=== PATIENT | male | born 1990 | race Hispanic/Latino ===

== ENCOUNTER 2019-07-23 09:19 | Emergency (ER) | payer MEDICAID ==
[2019-07-23 09:56] LABS: BASOPHILS % (AUTO) 0.2 % (0.0-5.0); EOSINOPHILS % (AUTO) 0.2 % (0.0-8.0); HEMATOCRIT 42.7 % (42-54); LYMPHOCYTES % (AUTO) 8.4 % (21.0-51.0); MEAN CORPUSCULAR HEMOGLOBIN 30.8 pg (27.0-33.0); MEAN CORPUSCULAR HGB CONC 33.7 g/dL (32.0-36.0); MEAN CORPUSCULAR VOLUME 91.4 fL (79-99); MONOCYTES % (AUTO) 4.7 % (3.0-13.0); NEUTROPHILS % (AUTO) 86.2 % (40.0-77.0); PLATELET COUNT (AUTO) 232 K/uL (130-400); RED BLOOD CELL COUNT(AUTO) 4.67 MIL/uL (4.50-6.20); RED CELL DISTRIBUTION WIDTH 13.1 % (11.0-15.5); WHITE BLOOD COUNT (AUTO) 14.8 K/uL (4.8-10.8)
[2019-07-23 10:04] LABS: CREATININE 0.8 mg/dL (0.5-1.5); POTASSIUM 3.3 mmol/L (3.5-5.1)
[2019-07-23 10:07] LABS: APPEARANCE,URINE Clear (CLEAR); BILIRUBIN,URINE Negative (NEGATIVE); COLOR,URINE Yellow (YELLOW); GLUCOSE, URINE (UA) Negative (NEGATIVE); KETONES,URINE Negative (NEGATIVE); LEUKOCYTE ESTERASE ,URINE Negative (NEGATIVE); NITRATE,URINE Negative (NEGATIVE); OCCULT BLOOD,URINE Negative (NEGATIVE); PROTEIN,URINE Negative (NEGATIVE); UROBILINOGEN,URINE 0.2 mg/dL (0.2-1.0)
[2019-07-23 10:09] LABS: BILIRUBIN,TOTAL 0.6 mg/dL (0.2-1.0); TOTAL PROTEIN, SERUM 6.9 g/dL (6.0-8.3)
[2019-07-23 10:14] LABS: AMPHET/METH SCREEN,URINE NEGATIVE (NEGATIVE); BARBITURATE SCREEN, URINE NEGATIVE (NEGATIVE); BENZODIAZEPINES SCREEN,URINE NEGATIVE (NEGATIVE); CANNABINOID SCREEN,URINE NEGATIVE (NEGATIVE); COCAINE SCREEN,URINE POSITIVE (NEGATIVE); OPIATE SCREEN,URINE NEGATIVE (NEGATIVE); PHENCYCLIDINE SCREEN,URINE NEGATIVE (NEGATIVE)
[2019-07-23] MEDS ORDERED: KETAMINE 50MG/ML SYRINGE 50 MG/ML DISP.SYRIN IV ONE (10:18)
[2019-07-23] MEDS ORDERED: SODIUM CHLORIDE 0.9% 100 ML IV ONE (10:19)
[2019-07-23] MEDS ORDERED: SODIUM CHLORIDE 0.9% 1000ML 1,000 ML IV ONE ×2 (11:47→15:16)
[2019-07-23] MEDS ORDERED: KETOROLAC TROMETHAMINE 30MG/ML ONE (11:47)
[2019-07-23] MEDS ORDERED: IOHEXOL-350 50ML VIAL IV ONE (12:37)
[2019-07-23] MEDS ORDERED: CEFTRIAXONE SODIUM 1 GM ONE (15:15)
[2019-07-23] MEDS ORDERED: AZITHROMYCIN 250 MG TABLET PO ONE (15:15)
[2019-07-23] MEDS ORDERED: SODIUM CHLORIDE 0.9% 50 ML IV ONE (15:16)
== END 2019-07-23 16:02 | disposition home or self-care (01) ==
LOC: EDH 09:19
DX: J18.9 Pneumonia, unspecified organism (principal); R51 Headache; I10 Essential (primary) hypertension; F14.90 Cocaine use, unspecified, uncomplicated; Z72.0 Tobacco use
CPT/HCPCS: 36415; 71045; 71260; 80053; 80305; 81003; 82550; 84484 ×2; 85025; 93005; 96374; 96375; 99285; G0480; J0696; J1885; J3490; J7030 ×2; Q9967

== ENCOUNTER → 2019-08-22 | Outpatient (CLI) | payer MEDICAID ==
[~2019-08-22] VITALS: Ht 167.6 cm; Wt 112.0 kg
[~2019-08-22] MED LIST: ASPI-1005 PO; CARV3.1262 PO; CLON0.5T4 PO; DOXY100T2 PO; LISI2.5T2 PO; PRED20TA3 PO; REGADENOSON 0.4 MG/5 ML PF SYG IVP SCH
== END | disposition home or self-care (01) ==
LOC: SHCH 07:34
PROVIDERS: ATTEND Internal Medicine Cardiovascular Disease
DX: I21.29 ST elevation (STEMI) myocardial infarction involving other sites (principal); I42.0 Dilated cardiomyopathy
CPT/HCPCS: 78452; 93017; 96374; A9500 ×2; J2785

== ENCOUNTER 2019-09-02 00:15 | Emergency (ER) | payer MEDICAID ==
[~2019-09-02 00:15] MED LIST changes: -REGADENOSON 0.4 MG/5 ML PF SYG IVP SCH
[2019-09-02] MEDS ORDERED: LORAZEPAM 2 MG/ML 1 ML VIAL ONE (00:37)
[2019-09-02 00:59] LABS: BASOPHILS % (AUTO) 0.2 % (0.0-5.0); EOSINOPHILS % (AUTO) 0.2 % (0.0-8.0); HEMATOCRIT 42.7 % (42-54); LYMPHOCYTES % (AUTO) 17.8 % (21.0-51.0); MEAN CORPUSCULAR HEMOGLOBIN 29.8 pg (27.0-33.0); MEAN CORPUSCULAR HGB CONC 33.7 g/dL (32.0-36.0); MEAN CORPUSCULAR VOLUME 88.4 fL (79-99); MONOCYTES % (AUTO) 12.2 % (3.0-13.0); NEUTROPHILS % (AUTO) 69.1 % (40.0-77.0); PLATELET COUNT (AUTO) 161 K/uL (130-400); RED BLOOD CELL COUNT(AUTO) 4.83 MIL/uL (4.50-6.20); RED CELL DISTRIBUTION WIDTH 13.5 % (11.0-15.5); WHITE BLOOD COUNT (AUTO) 5.7 K/uL (4.8-10.8)
[2019-09-02 01:08] LABS: CREATININE 1.4 mg/dL (0.5-1.5); POTASSIUM 3.2 mmol/L (3.5-5.1)
[2019-09-02 01:13] LABS: BILIRUBIN,TOTAL 0.5 mg/dL (0.2-1.0); TOTAL PROTEIN, SERUM 7.7 g/dL (6.0-8.3)
[2019-09-02] MEDS ORDERED: ACETAMINOPHEN EXTRA STRENGTH 500 MG TABLET ONE (02:01)
[2019-09-02] MEDS ORDERED: SODIUM CHLORIDE 0.9% 1000ML 1,000 ML IV ONE ×2 (02:04→05:38)
[2019-09-02] MEDS ORDERED: POTASSIUM CHLORIDE 20 MEQ ERTAB PO ONE (02:40)
== END 2019-09-02 06:21 | disposition home or self-care (01) ==
LOC: EDH 00:15
DX: F14.180 Cocaine abuse with cocaine-induced anxiety disorder (principal); R07.89 Other chest pain; E83.42 Hypomagnesemia; I10 Essential (primary) hypertension; Z72.0 Tobacco use
CPT/HCPCS: 36415; 71046; 80053; 82550; 83735; 83880; 84484 ×2; 85025; 87880; 93005 ×2; 96365; 96366; 96375; 99285; J2060; J7030 ×2

== ENCOUNTER 2019-09-03 17:40 | Emergency (ER) | payer MEDICAID ==
[2019-09-03] MEDS ORDERED: ACETAMINOPHEN EXTRA STRENGTH 500 MG TABLET ONE (18:05)
[2019-09-03 18:07] LABS: BASOPHILS % (AUTO) 0.3 % (0.0-5.0); HEMATOCRIT 42.6 % (42-54); LYMPHOCYTES % (AUTO) 51.1 % (21.0-51.0); MEAN CORPUSCULAR HEMOGLOBIN 29.8 pg (27.0-33.0); MEAN CORPUSCULAR HGB CONC 33.8 g/dL (32.0-36.0); MEAN CORPUSCULAR VOLUME 88.2 fL (79-99); MONOCYTES % (AUTO) 13.8 % (3.0-13.0); NEUTROPHILS % (AUTO) 34.3 % (40.0-77.0); PLATELET COUNT (AUTO) 153 K/uL (130-400); RED BLOOD CELL COUNT(AUTO) 4.83 MIL/uL (4.50-6.20); RED CELL DISTRIBUTION WIDTH 13.7 % (11.0-15.5); WHITE BLOOD COUNT (AUTO) 3.8 K/uL (4.8-10.8)
[2019-09-03] MEDS ORDERED: SODIUM CHLORIDE 0.9% 500ML 500 ML IV ONE (18:10)
[2019-09-03 18:19] LABS: INR 1.09 (0.85-1.15); PARTIAL THROMBOPLASTIN TIME 33.5 SEC (26.3-35.5); PROTHROMBIN TIME 11.4 SEC (9.6-11.6)
[2019-09-03 18:42] LABS: CARBON DIOXIDE 17 mmol/L (21-32); CHLORIDE 97 mmol/L (101-111); CREATININE 1.4 mg/dL (0.5-1.5); GLOMERULAR FILTR. RATE CALC 63 mL/min (>60); GLUCOSE,RANDOM 149 mg/dL (70-105); POTASSIUM 4.2 mmol/L (3.5-5.1); SODIUM SERUM 131 mmol/L (136-145); UREA NITROGEN, BLOOD 10 mg/dL (7-18)
[2019-09-03 18:51] LABS: APPEARANCE,URINE Clear (CLEAR); BILIRUBIN,URINE Negative (NEGATIVE); COLOR,URINE Yellow (YELLOW); GLUCOSE, URINE (UA) Negative (NEGATIVE); KETONES,URINE Negative (NEGATIVE); LEUKOCYTE ESTERASE ,URINE Negative (NEGATIVE); NITRATE,URINE Negative (NEGATIVE); OCCULT BLOOD,URINE Small (NEGATIVE); PROTEIN,URINE POS 2+ mg/dL (NEGATIVE)
[2019-09-03 18:53] LABS: ALANINE AMINOTRANSFERASE 31 U/L (12-78); ALBUMIN 3.3 g/dL (3.5-5.0); ASPARTATE AMINOTRANSFERASE 47 U/L (10-37); BILIRUBIN,TOTAL 0.4 mg/dL (0.2-1.0); CREATINE KINASE, TOTAL 213 U/L (21-232); MYOGLOBIN 51 ng/mL (10-92); TOTAL PROTEIN, SERUM 7.1 g/dL (6.0-8.3); TROPONIN I < 0.04 ng/mL (0.00-0.06)
[2019-09-03 18:58] LABS: AMPHET/METH SCREEN,URINE NEGATIVE (NEGATIVE); BARBITURATE SCREEN, URINE NEGATIVE (NEGATIVE); BENZODIAZEPINES SCREEN,URINE NEGATIVE (NEGATIVE); CANNABINOID SCREEN,URINE NEGATIVE (NEGATIVE); COCAINE SCREEN,URINE POSITIVE (NEGATIVE); OPIATE SCREEN,URINE NEGATIVE (NEGATIVE); PHENCYCLIDINE SCREEN,URINE NEGATIVE (NEGATIVE)
[2019-09-03 19:21] LABS: BACTERIA,URINE Few /HPF (None Seen); MUCUS,URINE Rare LPF (None Seen); SQUAMOUS EPITHELIAL CELL,UR Few /HPF (0-2); WBC,URINE 0-1 /HPF (0-1)
== END 2019-09-03 19:57 | disposition home or self-care (01) ==
LOC: EDH 17:40
DX: J10.1 Influenza due to other identified influenza virus with other respiratory manifestations (principal); I10 Essential (primary) hypertension; F14.10 Cocaine abuse, uncomplicated; Z72.0 Tobacco use
CPT/HCPCS: 36415; 71045; 80053; 80305; 81001; 82550; 83605; 83874; 83880; 84145; 84484; 85025; 85610; 85730; 87040 ×2; 87088; 87804 ×2; 93005; 99285; J7040

== ENCOUNTER 2019-09-04 22:47 | Emergency (ER) | payer MEDICAID ==
[2019-09-04 23:05] LABS: BASOPHILS % (AUTO) 0.2 % (0.0-5.0); EOSINOPHILS % (AUTO) 0.2 % (0.0-8.0); HEMATOCRIT 43.1 % (42-54); LYMPHOCYTES % (AUTO) 53.1 % (21.0-51.0); MEAN CORPUSCULAR HEMOGLOBIN 29.7 pg (27.0-33.0); MEAN CORPUSCULAR HGB CONC 33.9 g/dL (32.0-36.0); MEAN CORPUSCULAR VOLUME 87.8 fL (79-99); MONOCYTES % (AUTO) 8.7 % (3.0-13.0); NEUTROPHILS % (AUTO) 37.6 % (40.0-77.0); PLATELET COUNT (AUTO) 159 K/uL (130-400); RED BLOOD CELL COUNT(AUTO) 4.91 MIL/uL (4.50-6.20); RED CELL DISTRIBUTION WIDTH 13.5 % (11.0-15.5); WHITE BLOOD COUNT (AUTO) 4.5 K/uL (4.8-10.8)
[2019-09-04] MEDS ORDERED: ASPIRIN 325 MG TABLET ONE (23:07)
[2019-09-04] MEDS ORDERED: LORAZEPAM 2 MG/ML 1 ML VIAL ONE (23:07)
[2019-09-04 23:10] LABS: CREATININE 1.2 mg/dL (0.5-1.5); POTASSIUM 4.3 mmol/L (3.5-5.1)
[2019-09-04 23:12] LABS: INR 1.02 (0.85-1.15); PARTIAL THROMBOPLASTIN TIME 31.4 SEC (26.3-35.5); PROTHROMBIN TIME 10.7 SEC (9.6-11.6)
[2019-09-04 23:15] LABS: ALBUMIN 3.3 g/dL (3.5-5.0); BILIRUBIN,TOTAL 0.3 mg/dL (0.2-1.0)
[2019-09-04] MEDS ORDERED: SODIUM CHLORIDE 0.9% 250 ML IV ONE (23:51)
[2019-09-04] MEDS ORDERED: IPRATROPIUM/ALBUTEROL SULFATE 3 ML SOLUTION IH ONE (23:56)
[2019-09-05] MEDS ORDERED: ACETAMINOPHEN EXTRA STRENGTH 500 MG TABLET ONE (00:05)
== END 2019-09-05 01:50 | disposition home or self-care (01) ==
LOC: EDH 22:47
DX: J11.1 Influenza due to unidentified influenza virus with other respiratory manifestations (principal); I10 Essential (primary) hypertension; F14.10 Cocaine abuse, uncomplicated; Z72.0 Tobacco use
CPT/HCPCS: 36415; 71045; 80053; 82550; 83880; 84484; 85025; 85610; 85730; 93005; 94640; 96374; 99285; J2060; J7030

== ENCOUNTER → 2019-11-06 | Outpatient (CLI) | payer MEDICAID | END | disposition home or self-care (01) | LOC: SHCH 10:19 | PROVIDERS: ATTEND Internal Medicine Cardiovascular Disease | DX: I50.22 Chronic systolic (congestive) heart failure (principal); I07.1 Rheumatic tricuspid insufficiency | CPT/HCPCS: 93306; 93356 ==

== ENCOUNTER 2019-12-03 04:31 | Inpatient (IN) | payer MEDICAID ==
[2019-12-03] MEDS ORDERED: ALBUTEROL INHALER 90MCG/INH IH ONE (04:55)
[2019-12-03] MEDS ORDERED: ACETAMINOPHEN EXTRA STRENGTH 500 MG TABLET ONE (05:24)
[2019-12-03 05:29] LABS: BASOPHILS % (AUTO) 0.2 % (0.0-5.0); EOSINOPHILS % (AUTO) 0.3 % (0.0-8.0); HEMATOCRIT 42.8 % (42-54); LYMPHOCYTES % (AUTO) 11.2 % (21.0-51.0); MEAN CORPUSCULAR HEMOGLOBIN 30.3 pg (27.0-33.0); MEAN CORPUSCULAR HGB CONC 33.9 g/dL (32.0-36.0); MEAN CORPUSCULAR VOLUME 89.4 fL (79-99); MONOCYTES % (AUTO) 5.8 % (3.0-13.0); NEUTROPHILS % (AUTO) 82.2 % (40.0-77.0); PLATELET COUNT (AUTO) 252 K/uL (130-400); RED BLOOD CELL COUNT(AUTO) 4.79 MIL/uL (4.50-6.20); RED CELL DISTRIBUTION WIDTH 13.4 % (11.0-15.5); WHITE BLOOD COUNT (AUTO) 15.4 K/uL (4.8-10.8)
[2019-12-03 05:40] LABS: POTASSIUM 4.6 mmol/L (3.5-5.1)
[2019-12-03] MEDS ORDERED: AZITHROMYCIN 500MG+NS 250ML 250 ML IV ONE (05:54)
[2019-12-03] MEDS ORDERED: CEFTRIAXONE SODIUM 1 GM ONE (05:54)
[2019-12-03 05:55] LABS: B-TYPE NATRIURETIC PEPTIDE 303 pg/mL (0-100)
[2019-12-03] MEDS: AZITHROMYCIN 500MG+NS 250ML 250 ML IV SCH (06:45)
[2019-12-03 07:18] LABS: HEMOGLOBIN A1C 5.5 % (4.0-6.0)
[2019-12-03 07:21] LABS: PHOSPHORUS 3.2 mg/dL (2.5-4.9)
[2019-12-03] MEDS ORDERED: IOHEXOL-350 75 ML VIAL IV ONE (08:25)
[2019-12-03] MEDS: CEFTRIAXONE SODIUM 1 GM IV SCH ×2 (08:41→20:19)
[2019-12-03 09:00] VITALS: BP 102/64
--- NOTE | 2019-12-03 09:00 | NUR ---
ASSESSMENT PT IS AAOX3 DENIES CP DENIES SOB DENIES NV NO COMPLAINTS VERBALIZED AT THIS TIME. ARRIVED WITH ORDERS. ISOLATION MAINTAINED. CALL LIGHT WITHIN REACH.
[2019-12-03] MEDS: FAMOTIDINE 20MG TAB 20 MG TAB PO SCH ×2 (09:06→20:21)
[2019-12-03] MEDS: LISINOPRIL 2.5 MG TABLET PO SCH (09:06)
[2019-12-03] MEDS: CARVEDILOL 3.125 MG TABLET PO SCH ×2 (09:07→20:21)
[2019-12-03] MEDS: ENOXAPARIN SODIUM 40 MG/0.4 ML SYRINGE SQ SCH (09:07)
[2019-12-03] MEDS ORDERED: MAGNESIUM 2GM PREMIX 50ML 50 ML IV PRN (09:45)
[2019-12-03] MEDS ORDERED: LORAZEPAM 1 MG TABLET PO SCH (10:00)
[2019-12-03] MEDS ORDERED: PHARMACY COMMUNICATION MISC PRN (10:00)
[2019-12-03] MEDS ORDERED: CHLORDIAZEPOXIDE HCL 25 MG CAP PO PRN (10:00)
[2019-12-03] MEDS ORDERED: LORAZEPAM 2 MG/ML 1 ML VIAL IVP PRN (10:00)
[2019-12-03] MEDS ORDERED: MAGNESIUM OXIDE 400 MG TABLET PO SCH (10:00)
[2019-12-03 11:00] VITALS: BP 95/51
[2019-12-03] MEDS ORDERED: ALBUTEROL INHALER 90MCG/INH IH PRN (13:45)
[2019-12-03] MEDS ORDERED: LORAZEPAM 1 MG TABLET PO PRN (15:45)
[2019-12-03] MEDS: NICOTINE 21 MG/ 24 HR PATCH TD SCH (15:55)
[2019-12-03 16:00] VITALS: BP 109/59
--- NOTE | 2019-12-03 16:16 | NUR ---
DR DAIGLE ROUNDED SAW PATIENT, ORDERS RECEIVED
[2019-12-03] MEDS ORDERED: LOPERAMIDE HCL 2 MG CAP PO SCH (17:30)
[2019-12-03] MEDS ORDERED: LOPERAMIDE HCL 2 MG CAP PO PRN (17:30)
[2019-12-03] MEDS: METHYLPREDNISOLONE SOD SUCC 40MG/ML 1ML IVP SCH (20:19)
[2019-12-03 20:59] VITALS: BP 127/69
[2019-12-04 00:04] VITALS: BP 102/73
[2019-12-04 04:13] VITALS: BP 133/76
[2019-12-04 04:45] LABS: BASOPHILS % (AUTO) 0.1 % (0.0-5.0); EOSINOPHILS % (AUTO) 2.2 % (0.0-8.0); HEMATOCRIT 42.9 % (42-54); LYMPHOCYTES % (AUTO) 9.3 % (21.0-51.0); MEAN CORPUSCULAR HEMOGLOBIN 29.4 pg (27.0-33.0); MEAN CORPUSCULAR HGB CONC 32.9 g/dL (32.0-36.0); MEAN CORPUSCULAR VOLUME 89.6 fL (79-99); MONOCYTES % (AUTO) 1.6 % (3.0-13.0); NEUTROPHILS % (AUTO) 86.4 % (40.0-77.0); PLATELET COUNT (AUTO) 262 K/uL (130-400); RED BLOOD CELL COUNT(AUTO) 4.79 MIL/uL (4.50-6.20); RED CELL DISTRIBUTION WIDTH 13.6 % (11.0-15.5); WHITE BLOOD COUNT (AUTO) 7.9 K/uL (4.8-10.8)
[2019-12-04] MEDS: METHYLPREDNISOLONE SOD SUCC 40MG/ML 1ML IVP SCH (05:00)
[2019-12-04 05:06] LABS: CREATININE 0.8 mg/dL (0.5-1.5); MAGNESIUM 2.1 mg/dL (1.80-2.40); POTASSIUM 4.3 mmol/L (3.5-5.1)
[2019-12-04] MEDS: AZITHROMYCIN 500MG+NS 250ML 250 ML IV SCH (05:40)
[2019-12-04 06:56] LABS: AMPHET/METH SCREEN,URINE NEGATIVE (NEGATIVE); BARBITURATE SCREEN, URINE NEGATIVE (NEGATIVE); BENZODIAZEPINES SCREEN,URINE NEGATIVE (NEGATIVE); CANNABINOID SCREEN,URINE NEGATIVE (NEGATIVE); COCAINE SCREEN,URINE POSITIVE (NEGATIVE); OPIATE SCREEN,URINE NEGATIVE (NEGATIVE); PHENCYCLIDINE SCREEN,URINE NEGATIVE (NEGATIVE)
[2019-12-04 07:58] LABS: TROPONIN I 0.05 ng/mL (0.00-0.06)
[2019-12-04 08:59] VITALS: BP 145/78
[2019-12-04] MEDS ORDERED: CARVEDILOL 3.125 MG TABLET PO SCH (09:00)
--- NOTE | 2019-12-04 09:00 | NUR ---
Pt left AMA Pt signed AMA form and was about the risk and hazards of leaving AMA. Patient states yes i was told by Dr. Givens. But i will not stay another day because I feel better. Pt was informed the risk and hazards multiple times but refuses to stay. Pt states nothing will change by thought. Iv out intact, no bleeding. Pt wanted both small incision dressings changed prior to leaving. Dressing to mid epigastric and left hypochondriac region intact with steri strips reinforced with 4x4s and opsite. Bruising noted to left hypochondriac region no bleeding denies any tenderness. mid epigastric incision dry intact no bleeding no drainage denies any tenderness. Pt up walking no sob nor coughing noted. Patient states i am fine. Tele removed. Charge nurse Roro dickens and House claire Snow. at ER entrance. Addendum: 12/04/19 at 1135 by MEHNAZ ZULUAGA RN RN pt was informed that if at any time he feels sob breath or having chest pain to call 911 or to come to the ER. states okay sure will.
[2019-12-04] MEDS: LISINOPRIL 2.5 MG TABLET PO SCH (09:33)
[2019-12-04] MEDS: CEFTRIAXONE SODIUM 1 GM IV SCH (09:33)
[2019-12-04] MEDS: FAMOTIDINE 20MG TAB 20 MG TAB PO SCH (09:33)
[2019-12-04] MEDS: NICOTINE 21 MG/ 24 HR PATCH TD SCH (09:34)
[2019-12-04] MEDS: ENOXAPARIN SODIUM 40 MG/0.4 ML SYRINGE SQ SCH (10:08)
[2019-12-04 10:09] VITALS: BP 145/78
[2019-12-05 08:11] LABS: HEPATITIS A ANTIBODY IGM Negative (Negative); HEPATITIS B CORE IGM Negative (Negative); HEPATITIS Bs ANTIGEN SCREEN P Negative (Negative)
--- NOTE | 2019-12-09 10:15 | NUR ---
INFECTION CONTROL-CALLED PT TO INFORM HIM OF NEGATIVE RESULTS.
== END 2019-12-04 10:05 | disposition left against medical advice (07) | DRG 139 ==
LOC: EDH 04:31 → EDHIP 04:32 → 2DH 08:51
PROVIDERS: ADMIT Internal Medicine; ATTEND Internal Medicine
DX: J18.9 Pneumonia, unspecified organism (principal); J96.01 Acute respiratory failure with hypoxia; E83.42 Hypomagnesemia; F10.10 Alcohol abuse, uncomplicated; E66.9 Obesity, unspecified; F14.20 Cocaine dependence, uncomplicated; F17.200 Nicotine dependence, unspecified, uncomplicated; F41.9 Anxiety disorder, unspecified; I11.0 Hypertensive heart disease with heart failure; Z95.810 Presence of automatic (implantable) cardiac defibrillator; I50.42 Chronic combined systolic (congestive) and diastolic (congestive) heart failure; Z53.29 Procedure and treatment not carried out because of patient's decision for other reasons; Z83.3 Family history of diabetes mellitus; Z82.49 Family history of ischemic heart disease and other diseases of the circulatory system; I42.9 Cardiomyopathy, unspecified; Z91.14 Patient's other noncompliance with medication regimen; Z20.828 Contact with and (suspected) exposure to other viral communicable diseases; Y90.9 Presence of alcohol in blood, level not specified
CPT/HCPCS: 36415; 71045; 71275; 80048; 80074; 80305; 82550; 83036; 83605; 83615; 83735; 83874; 83880; 84100; 84145; 84484; 85025; 85378; 86140; 86701; 87040; 87071; 87205; 87390; 87633; 87635; 87804; 93005; 99291; G0378; J0456; J0696; J1650; J2920; Q9967

== ENCOUNTER 2019-12-12 07:49 | Inpatient (IN) | payer MEDICAID ==
[~2019-12-12 07:49] MED LIST changes: -CLON0.5T4 PO; -DOXY100T2 PO; -PRED20TA3 PO
[2019-12-12] MEDS ORDERED: MORPHINE SULFATE 4 MG/1ML SYG ONE (09:29)
[2019-12-12] MEDS ORDERED: ONDANSETRON HCL 4 MG/2 ML VIAL ONE (09:29)
[2019-12-12] MEDS ORDERED: LEVOFLOXACIN 500 MG/D5W 100 ML 100 ML ONE (09:29)
[2019-12-12 10:14] LABS: BASOPHILS % (AUTO) 0.3 % (0.0-5.0); EOSINOPHILS % (AUTO) 0.3 % (0.0-8.0); HEMATOCRIT 43.4 % (42-54); LYMPHOCYTES % (AUTO) 12.1 % (21.0-51.0); MEAN CORPUSCULAR HEMOGLOBIN 29.4 pg (27.0-33.0); MEAN CORPUSCULAR HGB CONC 33.2 g/dL (32.0-36.0); MEAN CORPUSCULAR VOLUME 88.6 fL (79-99); MONOCYTES % (AUTO) 5.3 % (3.0-13.0); NEUTROPHILS % (AUTO) 81.6 % (40.0-77.0); PLATELET COUNT (AUTO) 289 K/uL (130-400); RED CELL DISTRIBUTION WIDTH 13.8 % (11.0-15.5); WHITE BLOOD COUNT (AUTO) 14.6 K/uL (4.8-10.8)
[2019-12-12 10:26] LABS: CREATININE 1.2 mg/dL (0.5-1.5); POTASSIUM 3.8 mmol/L (3.5-5.1)
[2019-12-12 10:27] LABS: PROTHROMBIN TIME 10.8 SEC (9.6-11.6)
[2019-12-12 10:31] LABS: APPEARANCE,URINE CLEAR (CLEAR); BILIRUBIN,URINE NEGATIVE (NEGATIVE); COLOR,URINE YELLOW (YELLOW); GLUCOSE, URINE (UA) NEGATIVE (NEGATIVE); KETONES,URINE NEGATIVE (NEGATIVE); LEUKOCYTE ESTERASE ,URINE NEGATIVE (NEGATIVE); NITRATE,URINE NEGATIVE (NEGATIVE); OCCULT BLOOD,URINE NEGATIVE (NEGATIVE); PROTEIN,URINE NEGATIVE (NEGATIVE); UROBILINOGEN,URINE 0.2 mg/dL (0.2-1.0)
[2019-12-12 10:39] LABS: ALBUMIN 3.1 g/dL (3.5-5.0); BILIRUBIN,TOTAL 0.5 mg/dL (0.2-1.0); TOTAL PROTEIN, SERUM 6.6 g/dL (6.0-8.3); TROPONIN I 0.12 ng/mL (0.00-0.06)
[2019-12-12] MEDS ORDERED: SODIUM CHLORIDE 0.9% 1000ML 1,000 ML IV SCH (12:28)
[2019-12-12] MEDS ORDERED: ACETAMINOPHEN 325 MG TAB PO PRN ×2 (12:30)
[2019-12-12] MEDS ORDERED: ONDANSETRON HCL 4 MG/2 ML VIAL IV PRN (12:30)
[2019-12-12] MEDS ORDERED: METHYLPREDNISOLONE SOD SUCC 40MG/ML 1ML IVP SCH (13:00)
[2019-12-12] MEDS ORDERED: METHYLPREDNISOLONE SOD SUCC 40MG/ML 1ML ONE (14:40)
--- NOTE | 2019-12-12 15:46 | NUR ---
RECIEVED PATIENT ALERT, ORIENTED X3, IN NO OBVIOUS ACUTE DISTRESS. ASSESSED THE PATIENT, LUNG SOUNDS ARE CLEAR, DENIES SHORTNESS OF BREATH, PAIN OR ANY OTHER COMPLAINS. PATIENT VERBALIZED THAT HE IS HUNGRY AND WANTED SOME FOOD FROM THE OUTSIDE. EXPLAINED TO THE PATIENT THAT WE ARE NOT ALLOWING ANYTHING TO BE DELIVERED FROM THE OUTSIDE TO AVOID TRANSMISSION OF INFECTION FROM THE OUTSIDE TO THE EMPLOYEES AND TO OTHER PATIENT. THE PATIENT SEEM UPSET ABOUT THIS AND WAS VERBALIZING THAT HE WILL LEAVE AMA BECAUSE HE IS HUNGRY AND WAS NOT ABLE TO EAT FOR 2 DAYS. I EXPLAINED TO THE PATIENT WHAT THE DINNER WILL BE HERE BY [id number] AND TOLD HIM I CAN GET HIM SOME SNACK TO HOLD HIS HUNGER AND HE AGREED WITH THIS. I ASKED THE PATIENT IF HE WILL LEAVE AMA. HE VERBALIZED THAT HE WILL STAY.
--- NOTE | 2019-12-12 17:52 | NUR ---
THE PATIENT CALL ON THE CALL LIGHT AND VERBALIZED THAT HE WILL LEAVE BECAUSE HE DID NO LIKE THE FOOD. I EXPLAINED TO THE PATIENT THE IMPLICATIONS OF HIS DECISION TO LEAVE AMA. I TOLD HIM THAT HE HAS WORSENING PNEUMONIA AND HE IS SHORT OF BREATH AND LOW OXYGEN SATURATION THAT IT CAN BE VERY BAD FOR HIM TO LEAVE. I ALSO EXPLAINED TO HIM THAT LEAVING AMA THE HOSPITAL, DOCTORS AND NURSES WHO TOOK CARE OF HIM WILL NOT BE LIABLE IF SOMETHING MEDICALLY HAPPEN TO HIM. HE UNDERSTOOD THIS IMPLICATION AND HE SAID THAT HE STILL WANTED TO LEAVE AMA BECAUSE HE DID NOT LIKE THE FOOD. I NOTIFIED THE CHARGE NURSE, COLOR TELEVISION CONSOLE MONITOR, PAGEDontrell MARROQUIN. DC'D THE IV AND HE SIGNED THE AMA FORM.
[2019-12-12] MEDS ORDERED: IPRATROPIUM/ALBUTEROL SULFATE 3 ML SOLUTION IH SCH (18:00)
[2019-12-12] MEDS ORDERED: FAMOTIDINE/PF 20 MG/2 ML VIAL IV SCH (21:00)
[2019-12-12] MEDS ORDERED: ALBUTEROL INHALER 90MCG/INH IH SCH (22:00)
[2019-12-13] MEDS ORDERED: LEVOFLOXACIN 750 MG/D5W 150 ML 150 ML IV SCH (09:00)
== END 2019-12-12 18:15 | disposition left against medical advice (07) | DRG 139 ==
LOC: EDH 07:49 → EDHIP 07:50 → 2DH 15:28
PROVIDERS: ADMIT Internal Medicine; ATTEND Internal Medicine
DX: J18.9 Pneumonia, unspecified organism (principal); I50.40 Unspecified combined systolic (congestive) and diastolic (congestive) heart failure; F10.10 Alcohol abuse, uncomplicated; F17.200 Nicotine dependence, unspecified, uncomplicated; R09.02 Hypoxemia; F14.10 Cocaine abuse, uncomplicated; Z20.828 Contact with and (suspected) exposure to other viral communicable diseases; Z95.810 Presence of automatic (implantable) cardiac defibrillator; Z83.3 Family history of diabetes mellitus; Z82.49 Family history of ischemic heart disease and other diseases of the circulatory system
CPT/HCPCS: 36415; 71045; 80053; 81003; 82550; 83605; 83874; 83880; 84145; 84484; 85025; 85610; 85730; 87040; 87077; 87088; 87186; 87633; 87635; 87804; 93005; 99291; G0378; J1956; J2270; J2405; J2920

== ENCOUNTER 2019-12-22 02:42 | Inpatient (IN) | payer MEDICAID ==
[2019-12-22 04:22] LABS: APPEARANCE,URINE Clear (CLEAR); BILIRUBIN,URINE Negative (NEGATIVE); COLOR,URINE Yellow (YELLOW); GLUCOSE, URINE (UA) Negative (NEGATIVE); KETONES,URINE Negative (NEGATIVE); LEUKOCYTE ESTERASE ,URINE Negative (NEGATIVE); NITRATE,URINE Negative (NEGATIVE); OCCULT BLOOD,URINE Negative (NEGATIVE); PH,URINE 5.5 (5.0-8.0); PROTEIN,URINE Negative (NEGATIVE); UROBILINOGEN,URINE 0.2 mg/dL (0.2-1.0)
[2019-12-22 04:25] LABS: BASOPHILS % (AUTO) 0.3 % (0.0-5.0); EOSINOPHILS % (AUTO) 0.7 % (0.0-8.0); HEMATOCRIT 43.5 % (42-54); LYMPHOCYTES % (AUTO) 21.3 % (21.0-51.0); MEAN CORPUSCULAR HEMOGLOBIN 29.2 pg (27.0-33.0); MEAN CORPUSCULAR HGB CONC 32.6 g/dL (32.0-36.0); MEAN CORPUSCULAR VOLUME 89.3 fL (79-99); MONOCYTES % (AUTO) 5.3 % (3.0-13.0); NEUTROPHILS % (AUTO) 72.1 % (40.0-77.0); PLATELET COUNT (AUTO) 249 K/uL (130-400); RED BLOOD CELL COUNT(AUTO) 4.87 MIL/uL (4.50-6.20); RED CELL DISTRIBUTION WIDTH 13.5 % (11.0-15.5); WHITE BLOOD COUNT (AUTO) 10.6 K/uL (4.8-10.8)
[2019-12-22 04:35] LABS: INR 1.01 (0.85-1.15); PARTIAL THROMBOPLASTIN TIME 27.9 SEC (26.3-35.5); PROTHROMBIN TIME 10.9 SEC (9.6-11.6)
[2019-12-22 04:39] LABS: CREATININE 1.1 mg/dL (0.5-1.5); POTASSIUM 3.7 mmol/L (3.5-5.1)
[2019-12-22 04:40] LABS: AMPHET/METH SCREEN,URINE NEGATIVE (NEGATIVE); BARBITURATE SCREEN, URINE NEGATIVE (NEGATIVE); BENZODIAZEPINES SCREEN,URINE NEGATIVE (NEGATIVE); CANNABINOID SCREEN,URINE NEGATIVE (NEGATIVE); COCAINE SCREEN,URINE POSITIVE (NEGATIVE); OPIATE SCREEN,URINE NEGATIVE (NEGATIVE); PHENCYCLIDINE SCREEN,URINE NEGATIVE (NEGATIVE)
[2019-12-22] MEDS ORDERED: ASPIRIN 325 MG TABLET ONE (04:40)
[2019-12-22 04:42] LABS: ABG BASE EXCESS -3.4 mmol/L (-2.0-3.0); ABG HCO3 20.7 mmol/L (21.0-28.0); ABG PCO2 35 mmHg (35-48)
[2019-12-22] MEDS ORDERED: AZITHROMYCIN 500MG+NS 250ML 250 ML IV ONE (04:49)
[2019-12-22 04:53] LABS: ALBUMIN 3.4 g/dL (3.5-5.0); BILIRUBIN,TOTAL 0.3 mg/dL (0.2-1.0); TOTAL PROTEIN, SERUM 6.9 g/dL (6.0-8.3)
[2019-12-22 05:10] LABS: B-TYPE NATRIURETIC PEPTIDE 715 pg/mL (0-100)
[2019-12-22] MEDS ORDERED: MORPHINE SULFATE 2 MG/ML 1ML SYG IV PRN (08:30)
[2019-12-22] MEDS ORDERED: CEFTRIAXONE SODIUM 1 GM IV SCH (08:30)
[2019-12-22] MEDS ORDERED: AZITHROMYCIN 500MG+NS 250ML 250 ML IV SCH (08:30)
[2019-12-22] MEDS ORDERED: ONDANSETRON HCL 4 MG/2 ML VIAL IV PRN (08:30)
[2019-12-22] MEDS ORDERED: METHYLPREDNISOLONE SOD SUCC 125MG/2ML VIAL IV SCH (08:30)
[2019-12-22] MEDS ORDERED: ACETAMINOPHEN 325 MG TAB PO PRN ×2 (08:30)
[2019-12-22] MEDS ORDERED: HYDRALAZINE HCL 20 MG/ML VIAL IV PRN (08:30)
[2019-12-22] MEDS ORDERED: ENOXAPARIN SODIUM 30 MG/0.3 ML SQ SCH (09:00)
[2019-12-22] MEDS ORDERED: FAMOTIDINE/PF 20 MG/2 ML VIAL IV SCH (09:00)
[2019-12-22] MEDS ORDERED: MORPHINE SULFATE 2 MG/ML 1ML SYG ONE (09:28)
[2019-12-22] MEDS ORDERED: ENOXAPARIN SODIUM 30 MG/0.3 ML SQ ONE (09:30)
[2019-12-22] MEDS ORDERED: ONDANSETRON HCL 4 MG/2 ML VIAL ONE (09:30)
[2019-12-22] MEDS ORDERED: METHYLPREDNISOLONE SOD SUCC 40MG/ML 1ML ONE (09:30)
[2019-12-22] MEDS ORDERED: FAMOTIDINE/PF 20 MG/2 ML VIAL IV ONE (09:31)
[2019-12-22] MEDS ORDERED: FUROSEMIDE 10 MG/ML 4ML VIAL IV SCH (10:15)
[2019-12-22] MEDS ORDERED: FUROSEMIDE 10 MG/ML 4ML VIAL ONE (10:40)
== END 2019-12-22 15:50 | disposition left against medical advice (07) | DRG 194 ==
LOC: EDH 02:42 → EDHIP 02:43
PROVIDERS: ADMIT Hospitalist; ATTEND Hospitalist
DX: I11.0 Hypertensive heart disease with heart failure (principal); J96.01 Acute respiratory failure with hypoxia; I50.43 Acute on chronic combined systolic (congestive) and diastolic (congestive) heart failure; I42.8 Other cardiomyopathies; E66.9 Obesity, unspecified; E87.6 Hypokalemia; I42.0 Dilated cardiomyopathy; F10.10 Alcohol abuse, uncomplicated; F14.10 Cocaine abuse, uncomplicated; F17.200 Nicotine dependence, unspecified, uncomplicated; Z53.29 Procedure and treatment not carried out because of patient's decision for other reasons; Z91.14 Patient's other noncompliance with medication regimen; Z82.49 Family history of ischemic heart disease and other diseases of the circulatory system; Z83.3 Family history of diabetes mellitus; Z91.19 Patient's noncompliance with other medical treatment and regimen; Z95.810 Presence of automatic (implantable) cardiac defibrillator; Z20.828 Contact with and (suspected) exposure to other viral communicable diseases
CPT/HCPCS: 36415; 36600; 71045; 80053; 80305; 81003; 82550; 82803; 83605; 83690; 83880; 84145; 84484; 85025; 85378; 85610; 85730; 86140; 87040; 87077; 87186; 87486; 87581; 87633; 87798; 87804; 93005; 99291; G0378; J0456; J1650; J1940; J2405; J2920; J3490

== ENCOUNTER 2020-03-14 06:30 | Observation (INO) | payer MEDICAID, OTHER ==
[~2020-03-14] VITALS: Ht 167.6 cm; Wt 117.5 kg
[2020-03-14 08:13] LABS: BASOPHILS % (AUTO) 0.4 % (0.0-5.0); HEMATOCRIT 42.8 % (42-54); LYMPHOCYTES % (AUTO) 21.3 % (21.0-51.0); MEAN CORPUSCULAR HGB CONC 34.1 g/dL (32.0-36.0); MEAN CORPUSCULAR VOLUME 88.1 fL (79-99); MONOCYTES % (AUTO) 7.5 % (3.0-13.0); NEUTROPHILS % (AUTO) 70.6 % (40.0-77.0); PLATELET COUNT (AUTO) 184 K/uL (130-400); RED BLOOD CELL COUNT(AUTO) 4.86 MIL/uL (4.50-6.20); RED CELL DISTRIBUTION WIDTH 14.3 % (11.0-15.5); WHITE BLOOD COUNT (AUTO) 8.5 K/uL (4.8-10.8)
[2020-03-14 09:02] LABS: ALBUMIN 3.7 g/dL (3.5-5.0); BILIRUBIN,TOTAL 1.1 mg/dL (0.2-1.0); CREATININE 1.5 mg/dL (0.5-1.5); POTASSIUM 3.2 mmol/L (3.5-5.1); TOTAL PROTEIN, SERUM 7.2 g/dL (6.0-8.3)
[2020-03-14 09:14] LABS: INR 1.07 (0.85-1.15); PARTIAL THROMBOPLASTIN TIME 30.3 SEC (26.3-35.5); PROTHROMBIN TIME 11.5 SEC (9.6-11.6)
[2020-03-14 09:49] LABS: APPEARANCE,URINE Clear (CLEAR); BILIRUBIN,URINE Negative (NEGATIVE); COLOR,URINE Dark Yellow (YELLOW); GLUCOSE, URINE (UA) Negative (NEGATIVE); KETONES,URINE Trace mg/dL (NEGATIVE); LEUKOCYTE ESTERASE ,URINE Negative (NEGATIVE); NITRATE,URINE Negative (NEGATIVE); OCCULT BLOOD,URINE Small (NEGATIVE); PROTEIN,URINE POS 1+ mg/dL (NEGATIVE)
[2020-03-14 09:57] LABS: AMPHET/METH SCREEN,URINE NEGATIVE (NEGATIVE); BARBITURATE SCREEN, URINE NEGATIVE (NEGATIVE); BENZODIAZEPINES SCREEN,URINE NEGATIVE (NEGATIVE); CANNABINOID SCREEN,URINE NEGATIVE (NEGATIVE); COCAINE SCREEN,URINE POSITIVE (NEGATIVE); OPIATE SCREEN,URINE NEGATIVE (NEGATIVE); PHENCYCLIDINE SCREEN,URINE NEGATIVE (NEGATIVE)
[2020-03-14 10:08] LABS: BACTERIA,URINE Rare /HPF (None Seen); RBC,URINE 0-1 /HPF (0-1); SQUAMOUS EPITHELIAL CELL,UR Rare /HPF (0-2)
[2020-03-14] MEDS ORDERED: ASPIRIN 325 MG TABLET ONE (10:10)
[2020-03-14] MEDS ORDERED: FAMOTIDINE 20MG TAB 20 MG TAB PO SCH (11:39)
[2020-03-14] MEDS ORDERED: NITROGLYCERIN 1GM/1 INCH PACKET TD SCH (11:45)
--- NOTE | 2020-03-14 12:30 | NUR ---
PT DEMANDING TO HAVE FOOD BROUGHT UP TO HIS ROOM FROM OUTSIDE. PT UNWILLING TO WAIT FOR LUNCH TO BE DELIVERED FROM [place]. INFORMED PT THAT HOSPITAL POLICY DOES NOT ALLOW OUTSIDE FOOD OR DRINK. MR ALVAREZ BECAME IMPATIENT, DID NOT ALLOW NURSE TO SPEAK OR TO OBTAIN MD ORDERS. STATED, "JUST GET THE PAPERS READY, IM GOING TO LEAVE." AMA FORMS SIGNED. PIV REMOVED, HEMOSTASIS ACHIEVED AND DRESSED WITH STERILE 2X2 AND BAND AID. PT ESCORTED TO FRONT LOBBY, LEFT IN PRIVATE VEHICLE, IN STABLE CONDITION.
[2020-03-14 13:13] LABS: TROPONIN I 0.09 ng/mL (0.00-0.06)
--- NOTE | 2020-03-14 13:18 | NUR ---
REC'D PHONE CALL FROM LAB THAT PT'S CK WAS [phone]. PT HAS ALREADY LEFT, BUT RESULT WAS REPORTED TO DR MARTINEZ, WHO WAS ADMITTING MD.
[2020-03-14] MEDS ORDERED: METOPROLOL TARTRATE 25 MG TAB PO SCH (21:00)
[2020-03-15] MEDS ORDERED: ASPIRIN 81MG TAB.CHEW PO SCH (09:00)
[2020-03-15] MEDS ORDERED: ENOXAPARIN SODIUM 30 MG/0.3 ML SQ SCH (09:00)
== END 2020-03-14 12:30 | disposition left against medical advice (07) ==
LOC: EDH 06:30 → EDHIP 06:31 → 3BH 12:02
PROVIDERS: ADMIT Hospitalist; ATTEND Hospitalist
DX: R07.89 Other chest pain (principal); I11.0 Hypertensive heart disease with heart failure; I50.43 Acute on chronic combined systolic (congestive) and diastolic (congestive) heart failure; I42.0 Dilated cardiomyopathy; F17.200 Nicotine dependence, unspecified, uncomplicated; F10.10 Alcohol abuse, uncomplicated; E87.6 Hypokalemia; Z91.19 Patient's noncompliance with other medical treatment and regimen; Z95.810 Presence of automatic (implantable) cardiac defibrillator
CPT/HCPCS: 36415; 71046; 80053; 80305; 81001; 82550; 83874; 83880; 84484 ×2; 85025; 85378; 85610; 85730; 93005; 99285; G0378

== ENCOUNTER 2020-04-17 19:18 | Emergency (ER) | payer MEDICAID ==
[2020-04-17] MEDS ORDERED: ASPIRIN 325 MG TABLET ONE (19:53)
[2020-04-17] MEDS ORDERED: ACETAMINOPHEN EXTRA STRENGTH 500 MG TABLET ONE (19:53)
[2020-04-17 20:13] LABS: BASOPHILS % (AUTO) 0.2 % (0.0-5.0); EOSINOPHILS % (AUTO) 0.8 % (0.0-8.0); HEMATOCRIT 48.4 % (42-54); LYMPHOCYTES % (AUTO) 15.3 % (21.0-51.0); MEAN CORPUSCULAR HEMOGLOBIN 30.2 pg (27.0-33.0); MEAN CORPUSCULAR HGB CONC 34.1 g/dL (32.0-36.0); MEAN CORPUSCULAR VOLUME 88.5 fL (79-99); MONOCYTES % (AUTO) 6.5 % (3.0-13.0); PLATELET COUNT (AUTO) 181 K/uL (130-400); RED BLOOD CELL COUNT(AUTO) 5.47 MIL/uL (4.50-6.20); RED CELL DISTRIBUTION WIDTH 13.6 % (11.0-15.5); WHITE BLOOD COUNT (AUTO) 9.6 K/uL (4.8-10.8)
[2020-04-17 20:27] LABS: INR 0.99 (0.85-1.15); PARTIAL THROMBOPLASTIN TIME 27.1 SEC (26.3-35.5); PROTHROMBIN TIME 10.7 SEC (9.6-11.6)
[2020-04-17 20:33] LABS: ALBUMIN 3.7 g/dL (3.5-5.0); BILIRUBIN,TOTAL 0.7 mg/dL (0.2-1.0); CREATININE 1.1 mg/dL (0.5-1.5); TOTAL PROTEIN, SERUM 8.1 g/dL (6.0-8.3)
[2020-04-17 20:53] LABS: POTASSIUM 4.2 mmol/L (3.5-5.1)
[2020-04-17 20:57] LABS: B-TYPE NATRIURETIC PEPTIDE 112 pg/mL (0-100)
[2020-04-17 20:58] LABS: RAPID GROUP A STREP POSITIVE (NEGATIVE)
== END 2020-04-17 22:22 | disposition home or self-care (01) ==
LOC: EDH 19:18
DX: J02.0 Streptococcal pharyngitis (principal); R07.89 Other chest pain; Z20.828 Contact with and (suspected) exposure to other viral communicable diseases; I10 Essential (primary) hypertension; Z72.0 Tobacco use
CPT/HCPCS: 36415; 71045; 80053; 82550; 83880; 84484 ×2; 85025; 85610; 85730; 87426; 87804 ×2; 87880; 93005 ×2; 99285; U0003

== ENCOUNTER 2020-06-19 23:57 | Emergency (ER) | payer MEDICAID ==
[2020-06-20] MEDS ORDERED: ASPIRIN 325 MG TABLET ONE (00:07)
[2020-06-20 00:27] LABS: APPEARANCE,URINE Clear (CLEAR); BILIRUBIN,URINE Negative (NEGATIVE); COLOR,URINE Yellow (YELLOW); GLUCOSE, URINE (UA) Negative (NEGATIVE); KETONES,URINE Negative (NEGATIVE); LEUKOCYTE ESTERASE ,URINE Negative (NEGATIVE); NITRATE,URINE Negative (NEGATIVE); OCCULT BLOOD,URINE Negative (NEGATIVE); PH,URINE 5.5 (5.0-8.0); PROTEIN,URINE Negative (NEGATIVE)
[2020-06-20 00:27] LABS: INR 1.01 (0.85-1.15); PARTIAL THROMBOPLASTIN TIME 26.2 SEC (26.3-35.5); PROTHROMBIN TIME 10.9 SEC (9.6-11.6)
[2020-06-20 00:30] LABS: ALBUMIN 3.2 g/dL (3.5-5.0); BILIRUBIN,TOTAL 0.4 mg/dL (0.2-1.0); POTASSIUM 4.4 mmol/L (3.5-5.1); TOTAL PROTEIN, SERUM 6.7 g/dL (6.0-8.3)
[2020-06-20 00:40] LABS: BASOPHILS % (AUTO) 0.3 % (0.0-5.0); EOSINOPHILS % (AUTO) 2.6 % (0.0-8.0); HEMATOCRIT 45.6 % (42-54); LYMPHOCYTES % (AUTO) 31.6 % (21.0-51.0); MEAN CORPUSCULAR HEMOGLOBIN 30.5 pg (27.0-33.0); MEAN CORPUSCULAR HGB CONC 33.1 g/dL (32.0-36.0); MEAN CORPUSCULAR VOLUME 92.1 fL (79-99); MONOCYTES % (AUTO) 7.4 % (3.0-13.0); NEUTROPHILS % (AUTO) 57.9 % (40.0-77.0); PLATELET COUNT (AUTO) 255 K/uL (130-400); RED BLOOD CELL COUNT(AUTO) 4.95 MIL/uL (4.50-6.20); RED CELL DISTRIBUTION WIDTH 14.4 % (11.0-15.5); WHITE BLOOD COUNT (AUTO) 6.5 K/uL (4.8-10.8)
[2020-06-20 00:43] LABS: CREATININE 1.1 mg/dL (0.5-1.5)
[2020-06-20 00:46] LABS: AMPHET/METH SCREEN,URINE NEGATIVE (NEGATIVE); BARBITURATE SCREEN, URINE NEGATIVE (NEGATIVE); BENZODIAZEPINES SCREEN,URINE NEGATIVE (NEGATIVE); CANNABINOID SCREEN,URINE NEGATIVE (NEGATIVE); COCAINE SCREEN,URINE POSITIVE (NEGATIVE); OPIATE SCREEN,URINE NEGATIVE (NEGATIVE); PHENCYCLIDINE SCREEN,URINE NEGATIVE (NEGATIVE)
== END 2020-06-20 04:35 | disposition home or self-care (01) ==
LOC: EDH 23:57
DX: R07.89 Other chest pain (principal); M54.6 Pain in thoracic spine; F14.10 Cocaine abuse, uncomplicated; I10 Essential (primary) hypertension; Z72.0 Tobacco use
CPT/HCPCS: 36415; 71045; 80053; 80305; 81003; 82550; 83690; 84484; 85025; 85610; 85730; 93005

== ENCOUNTER 2020-06-29 23:42 | Observation (INO) | payer MEDICAID ==
[~2020-06-29] VITALS: Ht 167.6 cm; Wt 111.1 kg
[2020-06-30] MEDS ORDERED: LORAZEPAM 2 MG/ML 1 ML VIAL ONE (00:04)
[2020-06-30 00:07] LABS: APPEARANCE,URINE Clear (CLEAR); BILIRUBIN,URINE Negative (NEGATIVE); COLOR,URINE Yellow (YELLOW); GLUCOSE, URINE (UA) Negative (NEGATIVE); KETONES,URINE Negative (NEGATIVE); LEUKOCYTE ESTERASE ,URINE Negative (NEGATIVE); NITRATE,URINE Negative (NEGATIVE); OCCULT BLOOD,URINE Negative (NEGATIVE); PH,URINE 5.5 (5.0-8.0); PROTEIN,URINE Negative (NEGATIVE); UROBILINOGEN,URINE 0.2 mg/dL (0.2-1.0)
[2020-06-30 00:11] LABS: BASOPHILS % (AUTO) 0.2 % (0.0-5.0); EOSINOPHILS % (AUTO) 0.2 % (0.0-8.0); HEMATOCRIT 44.6 % (42-54); MEAN CORPUSCULAR HEMOGLOBIN 30.6 pg (27.0-33.0); MEAN CORPUSCULAR HGB CONC 34.8 g/dL (32.0-36.0); MONOCYTES % (AUTO) 5.5 % (3.0-13.0); NEUTROPHILS % (AUTO) 69.8 % (40.0-77.0); PLATELET COUNT (AUTO) 308 K/uL (130-400); RED BLOOD CELL COUNT(AUTO) 5.07 MIL/uL (4.50-6.20); RED CELL DISTRIBUTION WIDTH 13.3 % (11.0-15.5); WHITE BLOOD COUNT (AUTO) 12.2 K/uL (4.8-10.8)
[2020-06-30 00:21] LABS: CREATININE 1.1 mg/dL (0.5-1.5); POTASSIUM 4.3 mmol/L (3.5-5.1)
[2020-06-30 00:24] LABS: INR 1.05 (0.85-1.15); PARTIAL THROMBOPLASTIN TIME 25.1 SEC (26.3-35.5); PROTHROMBIN TIME 11.3 SEC (9.6-11.6)
[2020-06-30 00:25] LABS: ALBUMIN 3.3 g/dL (3.5-5.0); BILIRUBIN,TOTAL 0.6 mg/dL (0.2-1.0); TOTAL PROTEIN, SERUM 7.5 g/dL (6.0-8.3)
[2020-06-30 00:46] LABS: AMPHET/METH SCREEN,URINE NEGATIVE (NEGATIVE); BARBITURATE SCREEN, URINE NEGATIVE (NEGATIVE); BENZODIAZEPINES SCREEN,URINE NEGATIVE (NEGATIVE); CANNABINOID SCREEN,URINE NEGATIVE (NEGATIVE); COCAINE SCREEN,URINE POSITIVE (NEGATIVE); OPIATE SCREEN,URINE NEGATIVE (NEGATIVE); PHENCYCLIDINE SCREEN,URINE NEGATIVE (NEGATIVE)
[2020-06-30] MEDS ORDERED: FUROSEMIDE 10 MG/ML 4ML VIAL ONE (02:49)
[2020-06-30] MEDS ORDERED: IBUPROFEN 400 MG TABLET ONE (02:49)
[2020-06-30] MEDS ORDERED: IBUPROFEN 200 MG TAB ONE (02:49)
[2020-06-30] MEDS ORDERED: PHARMACY COMMUNICATION MISC PRN (05:00)
[2020-06-30] MEDS ORDERED: CHLORDIAZEPOXIDE HCL 25 MG CAP PO PRN (05:00)
[2020-06-30] MEDS ORDERED: LACTULOSE 20 GM/30 ML UDCUP PO PRN (05:00)
[2020-06-30] MEDS ORDERED: ACETAMINOPHEN 325 MG TAB PO PRN ×2 (05:00)
[2020-06-30] MEDS ORDERED: ONDANSETRON HCL 4 MG/2 ML VIAL IV PRN (05:00)
[2020-06-30] MEDS ORDERED: LORAZEPAM 2 MG/ML 1 ML VIAL IVP PRN (05:00)
--- NOTE | 2020-06-30 08:00 | NUR ---
ER ADMIT WITH DX CHEST PAIN AND ELEVATED CARDIAC ENZYMES. PENDING CARDIOLOGY CONSULT..FINE TREMORS NOTED TO HANDS AT THIS TIME OTHERWISE OK.ADM DATABASE STARTED.
[2020-06-30 08:20] VITALS: BP 113/83
[2020-06-30] MEDS ORDERED: FAMOTIDINE 20MG TAB 20 MG TAB PO SCH (09:00)
[2020-06-30] MEDS ORDERED: MULTIVITAMIN TABLET PO SCH (09:00)
[2020-06-30] MEDS ORDERED: ASPIRIN 325 MG TABLET PO SCH (09:00)
[2020-06-30] MEDS ORDERED: FOLIC ACID 1 MG TABLET PO SCH (09:00)
[2020-06-30] MEDS ORDERED: THIAMINE HCL 100 MG/ML 2ML VIAL IM SCH (09:00)
--- NOTE | 2020-06-30 09:30 | NUR ---
PA. WITH DR HARTLEY IN TO SEE PT.
[2020-06-30] MEDS: FUROSEMIDE 10 MG/ML 2ML VIAL IV SCH ×2 (10:42→17:43)
--- NOTE | 2020-06-30 14:30 | NUR ---
DR. HARTLEY IN TO SEE PT. NO ORDERS
--- NOTE | 2020-06-30 18:00 | NUR ---
SO FAR HAS BEEN CO OPERATIVE. HAS BEEN INST. TO CALL WHEN NEEDS TO GO TO [facility] BUT HAS BEEN GOING ON HIS OWN.ALSO STATES FEELING FINE AND THINKS HE CAN GO HOME.
[2020-06-30 18:11] VITALS: BP 109/72
--- NOTE | 2020-06-30 20:31 | NUR ---
2029: Patient called stated he wanted to go against medical advice, encouraged patient to stay. He said " I can't stand being in the hospital I miss my kids, anyways I have a doctor's appointment tomorrow". I paged Ankita REGAN via answering service. Patient signed paper for AMA, and saline lock to lt hand removed with catheter intact. 2030: Dante REGAN returned the call informed her of above, no new orders. Galen Malonelog sorting supervisor aware. 2031: Patient walked out of the room to elevated to go home, denied any discomfort.
== END 2020-06-30 20:32 | disposition left against medical advice (07) ==
LOC: EDH 23:42 → EDHIP 23:43 → 4AH 06-30 08:07
PROVIDERS: ADMIT Internal Medicine; ATTEND Internal Medicine
DX: R07.89 Other chest pain (principal); Z20.828 Contact with and (suspected) exposure to other viral communicable diseases; I11.0 Hypertensive heart disease with heart failure; I50.42 Chronic combined systolic (congestive) and diastolic (congestive) heart failure; I42.0 Dilated cardiomyopathy; F17.210 Nicotine dependence, cigarettes, uncomplicated; F14.10 Cocaine abuse, uncomplicated; F10.10 Alcohol abuse, uncomplicated; Z95.810 Presence of automatic (implantable) cardiac defibrillator; Z79.82 Long term (current) use of aspirin; Z79.899 Other long term (current) drug therapy
CPT/HCPCS: 36415; 71045; 80053; 80305; 81003; 82550; 83880; 84484 ×3; 85025; 85610; 85730; 87426; 93005 ×2; 93306; 93356; 96372; 96374; 96376; 99285; G0378 ×16; J1940 ×3; J2060; J3411; U0003

== ENCOUNTER 2020-08-02 11:46 | Emergency (ER) | payer MEDICAID ==
[2020-08-02] MEDS ORDERED: IOHEXOL 350 MG/ML 100ML INFUS..BTL IV ONE ×2 (13:06→14:30)
[2020-08-02 13:14] LABS: BASOPHILS % (AUTO) 0.1 % (0.0-5.0); EOSINOPHILS % (AUTO) 0.5 % (0.0-8.0); HEMATOCRIT 41.5 % (42-54); MEAN CORPUSCULAR HEMOGLOBIN 29.8 pg (27.0-33.0); MEAN CORPUSCULAR HGB CONC 33.5 g/dL (32.0-36.0); MEAN CORPUSCULAR VOLUME 88.9 fL (79-99); MONOCYTES % (AUTO) 4.9 % (3.0-13.0); NEUTROPHILS % (AUTO) 78.2 % (40.0-77.0); PLATELET COUNT (AUTO) 219 K/uL (130-400); RED BLOOD CELL COUNT(AUTO) 4.67 MIL/uL (4.50-6.20); RED CELL DISTRIBUTION WIDTH 13.5 % (11.0-15.5); WHITE BLOOD COUNT (AUTO) 9.2 K/uL (4.8-10.8)
[2020-08-02 13:26] LABS: INR 1.14 (0.85-1.15); PROTHROMBIN TIME 12.1 SEC (9.6-11.6)
[2020-08-02 13:27] LABS: PARTIAL THROMBOPLASTIN TIME 26.3 SEC (26.3-35.5)
[2020-08-02 13:53] LABS: ALBUMIN 2.9 g/dL (3.5-5.0); TOTAL PROTEIN, SERUM 6.9 g/dL (6.0-8.3)
[2020-08-02] MEDS ORDERED: AZITHROMYCIN 500MG+NS 250ML 250 ML IV ONE (13:53)
[2020-08-02] MEDS ORDERED: SODIUM CHLORIDE 0.9% 50 ML IV ONE (13:53)
[2020-08-02] MEDS ORDERED: CEFTRIAXONE SODIUM 1 GM ONE (13:53)
[2020-08-02 14:18] LABS: APPEARANCE,URINE Clear (CLEAR); BILIRUBIN,URINE Negative (NEGATIVE); COLOR,URINE Yellow (YELLOW); GLUCOSE, URINE (UA) Negative (NEGATIVE); KETONES,URINE Negative (NEGATIVE); LEUKOCYTE ESTERASE ,URINE Negative (NEGATIVE); NITRATE,URINE Negative (NEGATIVE); OCCULT BLOOD,URINE Negative (NEGATIVE); PH,URINE 8.5 (5.0-8.0); PROTEIN,URINE Negative (NEGATIVE); UROBILINOGEN,URINE 0.2 mg/dL (0.2-1.0)
[2020-08-02] MEDS ORDERED: ACETAMINOPHEN 325 MG TAB ONE (14:55)
== END 2020-08-02 16:56 | disposition home or self-care (01) ==
LOC: EDH 11:46
DX: J12.89 Other viral pneumonia (principal); Z20.828 Contact with and (suspected) exposure to other viral communicable diseases; I10 Essential (primary) hypertension; F41.9 Anxiety disorder, unspecified; F32.9 Major depressive disorder, single episode, unspecified; Z72.0 Tobacco use
CPT/HCPCS: 36415; 71045; 71275; 80053; 81003; 83605; 84145; 84484; 85025; 85378; 85610; 85730; 86900; 86901; 87040 ×2; 87088; 87426; 87804 ×2; 93005; 96365; 96366 ×2; 96368; 99285; J0456; J0696; Q9967 ×2; U0003

== ENCOUNTER 2020-08-21 01:11 | Inpatient (IN) | payer MEDICAID ==
[~2020-08-21 01:11] MED LIST changes: +LISI2.5T13 PO; -LISI2.5T2 PO
[2020-08-21] MEDS ORDERED: FAMOTIDINE 20MG VIAL IV ONE ×2 (01:27→07:24)
[2020-08-21 01:28] LABS: BASOPHILS % (AUTO) 0.2 % (0.0-5.0); EOSINOPHILS % (AUTO) 0.2 % (0.0-8.0); HEMATOCRIT 48.7 % (42-54); LYMPHOCYTES % (AUTO) 8.8 % (21.0-51.0); MEAN CORPUSCULAR HEMOGLOBIN 29.4 pg (27.0-33.0); MEAN CORPUSCULAR HGB CONC 33.5 g/dL (32.0-36.0); MEAN CORPUSCULAR VOLUME 87.7 fL (79-99); MONOCYTES % (AUTO) 3.2 % (3.0-13.0); NEUTROPHILS % (AUTO) 87.2 % (40.0-77.0); PLATELET COUNT (AUTO) 283 K/uL (130-400); RED BLOOD CELL COUNT(AUTO) 5.55 MIL/uL (4.50-6.20); RED CELL DISTRIBUTION WIDTH 13.7 % (11.0-15.5); WHITE BLOOD COUNT (AUTO) 16.6 K/uL (4.8-10.8)
[2020-08-21 01:37] LABS: CREATININE 1.2 mg/dL (0.5-1.5); POTASSIUM 3.5 mmol/L (3.5-5.1)
[2020-08-21 01:43] LABS: ALBUMIN 4.1 g/dL (3.5-5.0); BILIRUBIN,TOTAL 0.9 mg/dL (0.2-1.0); TOTAL PROTEIN, SERUM 8.8 g/dL (6.0-8.3)
[2020-08-21 01:47] LABS: INR 1.13 (0.85-1.15)
[2020-08-21 01:49] LABS: PARTIAL THROMBOPLASTIN TIME 27.9 SEC (26.3-35.5)
[2020-08-21 02:26] LABS: APPEARANCE,URINE Clear (CLEAR); BILIRUBIN,URINE Negative (NEGATIVE); COLOR,URINE Yellow (YELLOW); GLUCOSE, URINE (UA) Negative (NEGATIVE); KETONES,URINE 40 mg/dL (NEGATIVE); LEUKOCYTE ESTERASE ,URINE Trace (NEGATIVE); NITRATE,URINE Negative (NEGATIVE); OCCULT BLOOD,URINE Negative (NEGATIVE); PROTEIN,URINE Negative (NEGATIVE)
[2020-08-21 02:38] LABS: AMPHET/METH SCREEN,URINE NEGATIVE (NEGATIVE); BARBITURATE SCREEN, URINE NEGATIVE (NEGATIVE); BENZODIAZEPINES SCREEN,URINE NEGATIVE (NEGATIVE); CANNABINOID SCREEN,URINE NEGATIVE (NEGATIVE); COCAINE SCREEN,URINE POSITIVE (NEGATIVE); OPIATE SCREEN,URINE NEGATIVE (NEGATIVE); PHENCYCLIDINE SCREEN,URINE NEGATIVE (NEGATIVE)
[2020-08-21 02:41] LABS: BACTERIA,URINE Rare /HPF (None Seen); RBC,URINE 0-1 /HPF (0-1); WBC,URINE 0-1 /HPF (0-1)
[2020-08-21 02:42] LABS: SQUAMOUS EPITHELIAL CELL,UR 0-2 /HPF (0-2)
[2020-08-21] MEDS ORDERED: IOHEXOL 350 MG/ML 100ML INFUS..BTL IV ONE (04:03)
[2020-08-21] MEDS ORDERED: ACETAMINOPHEN 325 MG TAB ONE (05:16)
[2020-08-21] MEDS ORDERED: DEXAMETHASONE SOD PHOSPHATE 10MG/ML 1ML VIAL ONE (05:46)
[2020-08-21] MEDS ORDERED: CEFTRIAXONE 1G VIAL ONE (05:47)
[2020-08-21] MEDS ORDERED: AZITHROMYCIN 500MG+NS 250ML 250 ML IV ONE (05:47)
[2020-08-21] MEDS ORDERED: ASPIRIN 325 MG TABLET ONE (05:47)
[2020-08-21] MEDS ORDERED: ONDANSETRON 4MG INJ IV PRN (06:00)
[2020-08-21] MEDS ORDERED: DIPHENHYDRAMINE HCL 25 MG CAPSULE PO PRN (06:00)
[2020-08-21] MEDS ORDERED: NITROGLYCERIN 0.4 MG SL TAB SL PRN (06:00)
[2020-08-21] MEDS ORDERED: GUAIFENESIN-DM 200/20 MG 10 ML PO PRN (06:00)
[2020-08-21] MEDS ORDERED: CEFTRIAXONE 1G VIAL IVP SCH (06:00)
[2020-08-21] MEDS ORDERED: DOXYCYCLINE 100MG+NS 250ML IV SCH (06:00)
[2020-08-21] MEDS ORDERED: DiphenhydrAMINE HCL 50 MG/ML VIAL IV PRN (06:00)
[2020-08-21] MEDS ORDERED: ERGOCALCIFEROL (VITAMIN D2) 50,000 UNIT CAPSULE PO SCH (06:00)
[2020-08-21] MEDS ORDERED: ACETAMINOPHEN 325 MG TAB PO PRN ×2 (06:00)
[2020-08-21] MEDS ORDERED: DEXAMETHASONE SOD PHOSPHATE 4 MG/ML 1ML VIAL IVP SCH (06:00)
[2020-08-21] MEDS ORDERED: LACTULOSE 20 GM/30 ML UDCUP PO PRN (06:00)
[2020-08-21] MEDS ORDERED: MAG/ALUM/SIMETH 30 ML UDCUP PO PRN (06:00)
[2020-08-21] MEDS ORDERED: ZINC SULFATE 220 CAPSULE ONE (07:23)
[2020-08-21] MEDS ORDERED: ASCORBIC ACID 500 MG TAB ONE (07:23)
[2020-08-21] MEDS ORDERED: ERGOCALCIFEROL (VITAMIN D2) 50,000 UNIT CAPSULE ONE (07:23)
[2020-08-21] MEDS ORDERED: DOXYCYCLINE 100MG+NS 250ML 250 ML IV ONE (07:24)
[2020-08-21] MEDS ORDERED: FAMOTIDINE 20MG VIAL IV SCH (09:00)
[2020-08-21] MEDS ORDERED: ENOXAPARIN SODIUM 40 MG/0.4 ML SYRINGE SQ SCH (09:00)
[2020-08-21] MEDS ORDERED: ASCORBIC ACID 500 MG TAB PO SCH (09:00)
[2020-08-21] MEDS ORDERED: ZINC SULFATE 220 CAPSULE PO SCH (09:00)
== END 2020-08-21 07:57 | disposition left against medical advice (07) | DRG 194 ==
LOC: EDH 01:11 → EDHIP 01:12
PROVIDERS: ADMIT Family Medicine; ATTEND Family Medicine
DX: I50.43 Acute on chronic combined systolic (congestive) and diastolic (congestive) heart failure (principal); J18.9 Pneumonia, unspecified organism; F14.129 Cocaine abuse with intoxication, unspecified; E66.01 Morbid (severe) obesity due to excess calories; Z20.822 Contact with and (suspected) exposure to COVID-19; Z95.810 Presence of automatic (implantable) cardiac defibrillator; Z91.19 Patient's noncompliance with other medical treatment and regimen; Z83.3 Family history of diabetes mellitus; Z82.49 Family history of ischemic heart disease and other diseases of the circulatory system
CPT/HCPCS: 71045; 71275; 93005; G0378; J0456; J0696; J1100; J3490; Q9967

== ENCOUNTER 2020-08-29 08:54 | Inpatient (IN) | payer MEDICAID ==
[~2020-08-29] VITALS: Ht 167.6 cm; Wt 118.0 kg
[2020-08-29 09:21] LABS: BASOPHILS % (AUTO) 0.2 % (0.0-5.0); EOSINOPHILS % (AUTO) 0.1 % (0.0-8.0); HEMATOCRIT 40.2 % (42-54); LYMPHOCYTES % (AUTO) 9.5 % (21.0-51.0); MEAN CORPUSCULAR HEMOGLOBIN 29.2 pg (27.0-33.0); MEAN CORPUSCULAR HGB CONC 33.6 g/dL (32.0-36.0); MEAN CORPUSCULAR VOLUME 86.8 fL (79-99); MONOCYTES % (AUTO) 6.1 % (3.0-13.0); NEUTROPHILS % (AUTO) 83.7 % (40.0-77.0); PLATELET COUNT (AUTO) 298 K/uL (130-400); RED BLOOD CELL COUNT(AUTO) 4.63 MIL/uL (4.50-6.20); WHITE BLOOD COUNT (AUTO) 12.1 K/uL (4.8-10.8)
[2020-08-29] MEDS ORDERED: ZOSYN 3.375GM+NS 50ML 50 ML IV ONE ×2 (09:32→21:46)
[2020-08-29 09:38] LABS: CARBON DIOXIDE 18 mmol/L (21-32); CHLORIDE 100 mmol/L (101-111); CREATININE 1.4 mg/dL (0.5-1.5); GLOMERULAR FILTR. RATE CALC 62 mL/min (>60); GLUCOSE,RANDOM 125 mg/dL (70-105); POTASSIUM 4.2 mmol/L (3.5-5.1); SODIUM SERUM 132 mmol/L (136-145); UREA NITROGEN, BLOOD 10 mg/dL (7-18)
[2020-08-29 09:45] LABS: INR 1.18 (0.85-1.15); PROTHROMBIN TIME 12.7 SEC (9.6-11.6)
[2020-08-29 09:46] LABS: PARTIAL THROMBOPLASTIN TIME 26.4 SEC (26.3-35.5)
[2020-08-29 09:50] LABS: ALANINE AMINOTRANSFERASE 29 U/L (12-78); ASPARTATE AMINOTRANSFERASE 31 U/L (10-37); BILIRUBIN,TOTAL 1.2 mg/dL (0.2-1.0); CREATINE KINASE, TOTAL 219 U/L (21-232); MYOGLOBIN 67 ng/mL (10-92); TOTAL PROTEIN, SERUM 6.8 g/dL (6.0-8.3); TROPONIN I < 0.04 ng/mL (0.00-0.06)
[2020-08-29 10:02] LABS: ABG BASE EXCESS -2.2 mmol/L (-2.0-3.0); ABG HCO3 20.8 mmol/L (21.0-28.0); ABG PCO2 31 mmHg (35-48)
[2020-08-29 10:22] LABS: ERYTHROCYTE SEDIMENTATION RATE 12 MM/HR (0-15)
[2020-08-29 10:26] LABS: APPEARANCE,URINE Clear (CLEAR); BILIRUBIN,URINE Small (NEGATIVE); COLOR,URINE Dark Yellow (YELLOW); GLUCOSE, URINE (UA) Negative (NEGATIVE); KETONES,URINE Trace mg/dL (NEGATIVE); LEUKOCYTE ESTERASE ,URINE Trace (NEGATIVE); NITRATE,URINE Negative (NEGATIVE); OCCULT BLOOD,URINE Negative (NEGATIVE); PROTEIN,URINE Trace mg/dL (NEGATIVE)
[2020-08-29 10:34] LABS: AMPHET/METH SCREEN,URINE NEGATIVE (NEGATIVE); BARBITURATE SCREEN, URINE NEGATIVE (NEGATIVE); BENZODIAZEPINES SCREEN,URINE NEGATIVE (NEGATIVE); CANNABINOID SCREEN,URINE NEGATIVE (NEGATIVE); COCAINE SCREEN,URINE POSITIVE (NEGATIVE); OPIATE SCREEN,URINE NEGATIVE (NEGATIVE); PHENCYCLIDINE SCREEN,URINE NEGATIVE (NEGATIVE)
[2020-08-29 10:35] LABS: BACTERIA,URINE Moderate /HPF (None Seen); RBC,URINE None Seen /HPF (0-1); SQUAMOUS EPITHELIAL CELL,UR Few /HPF (0-2); WBC,URINE 0-1 /HPF (0-1)
[2020-08-29 10:36] LABS: HYALINE CASTS, URINE 0-1 /LPF (0-1 /LPF); MUCUS,URINE Moderate LPF (None Seen)
[2020-08-29 10:39] LABS: B-TYPE NATRIURETIC PEPTIDE 520 pg/mL (0-100)
[2020-08-29] MEDS ORDERED: ONDANSETRON 4MG INJ IV PRN (13:30)
[2020-08-29] MEDS ORDERED: FUROSEMIDE 20MG VIAL IV SCH (13:30)
[2020-08-29] MEDS ORDERED: ACETAMINOPHEN 325 MG TAB PO PRN ×2 (13:30)
[2020-08-29] MEDS ORDERED: FUROSEMIDE 20MG VIAL ONE (13:38)
[2020-08-29] MEDS ORDERED: CEFTRIAXONE 1G VIAL ONE (15:50)
[2020-08-29] MEDS ORDERED: ACETAMINOPHEN 325 MG TAB ONE (15:50)
[2020-08-29] MEDS ORDERED: ZOSYN 3.375GM+NS 50ML 50 ML IV SCH (17:00)
[2020-08-29] MEDS ORDERED: SOLU-MEDROL 40MG VIAL IVP SCH (17:00)
[2020-08-29] MEDS ORDERED: DOXYCYCLINE 100MG+NS 250ML 250 ML IV ONE (17:48)
[2020-08-29] MEDS ORDERED: CARV6.2579 PO (20:54)
[2020-08-29] MEDS ORDERED: lorazepam (20:56)
[2020-08-29] MEDS ORDERED: remeron (20:57)
[2020-08-29] MEDS ORDERED: LINEZOLID 600 MG/ISO-OSM 300 ML IV SCH (21:00)
[2020-08-29] MEDS ORDERED: FAMOTIDINE 20MG VIAL IV SCH (21:00)
[2020-08-29] MEDS ORDERED: FAMOTIDINE 20MG VIAL IV ONE (21:47)
[2020-08-30] MEDS ORDERED: ENOXAPARIN SODIUM 40 MG/0.4 ML SYRINGE SQ SCH (09:00)
== END 2020-08-30 00:48 | disposition left against medical advice (07) | DRG 720 ==
LOC: EDH 08:54 → EDHIP 08:55
PROVIDERS: ADMIT Internal Medicine; ATTEND Internal Medicine
DX: A41.9 Sepsis, unspecified organism (principal); J96.01 Acute respiratory failure with hypoxia; I50.43 Acute on chronic combined systolic (congestive) and diastolic (congestive) heart failure; Z20.822 Contact with and (suspected) exposure to COVID-19; R65.21 Severe sepsis with septic shock; J18.8 Other pneumonia, unspecified organism; F14.10 Cocaine abuse, uncomplicated; Z95.810 Presence of automatic (implantable) cardiac defibrillator; Z83.3 Family history of diabetes mellitus; Z82.49 Family history of ischemic heart disease and other diseases of the circulatory system; Z91.14 Patient's other noncompliance with medication regimen
CPT/HCPCS: 36415; 36600; 71045; 80053; 80305; 81001; 82550; 82803; 83605; 83874; 83880; 84145; 84484; 85025; 85378; 85610; 85651; 85730; 86140; 86900; 86901; 87040; 87088; 87426; 87804; 93005; 99291; G0378; J0696; J1940; J2020; J2543; J3490; U0003

== ENCOUNTER 2020-09-13 06:31 | Inpatient (IN) | payer MEDICAID ==
[~2020-09-13] VITALS: Ht 167.6 cm; Wt 113.0 kg
[~2020-09-13 06:31] MED LIST changes: -CARV3.1262 PO; +CARV6.2579 PO; +lorazepam; +remeron
[2020-09-13 08:09] LABS: BASOPHILS % (AUTO) 0.2 % (0.0-5.0); EOSINOPHILS % (AUTO) 0.2 % (0.0-8.0); LYMPHOCYTES % (AUTO) 6.8 % (21.0-51.0); MEAN CORPUSCULAR HEMOGLOBIN 28.4 pg (27.0-33.0); MEAN CORPUSCULAR HGB CONC 32.8 g/dL (32.0-36.0); MEAN CORPUSCULAR VOLUME 86.5 fL (79-99); MONOCYTES % (AUTO) 4.8 % (3.0-13.0); NEUTROPHILS % (AUTO) 87.6 % (40.0-77.0); PLATELET COUNT (AUTO) 235 K/uL (130-400); RED BLOOD CELL COUNT(AUTO) 4.51 MIL/uL (4.50-6.20); RED CELL DISTRIBUTION WIDTH 14.1 % (11.0-15.5); WHITE BLOOD COUNT (AUTO) 11.5 K/uL (4.8-10.8)
[2020-09-13 08:23] LABS: INR 1.16 (0.85-1.15); PROTHROMBIN TIME 12.5 SEC (9.6-11.6)
[2020-09-13 08:24] LABS: ALANINE AMINOTRANSFERASE 17 U/L (12-78); ALBUMIN 3.1 g/dL (3.5-5.0); APPEARANCE,URINE CLEAR (CLEAR); ASPARTATE AMINOTRANSFERASE 29 U/L (10-37); BILIRUBIN,TOTAL 1.1 mg/dL (0.2-1.0); BILIRUBIN,URINE NEGATIVE (NEGATIVE); CARBON DIOXIDE 21 mmol/L (21-32); CHLORIDE 101 mmol/L (101-111); COLOR,URINE YELLOW (YELLOW); CREATINE KINASE, TOTAL 156 U/L (21-232); CREATININE 0.9 mg/dL (0.5-1.5); GLOMERULAR FILTR. RATE CALC 104 mL/min (>60); GLUCOSE, URINE (UA) NEGATIVE (NEGATIVE); GLUCOSE,RANDOM 89 mg/dL (70-105); KETONES,URINE 15 mg/dL (NEGATIVE); LEUKOCYTE ESTERASE ,URINE NEGATIVE (NEGATIVE); MYOGLOBIN 58 ng/mL (10-92); NITRATE,URINE NEGATIVE (NEGATIVE); OCCULT BLOOD,URINE NEGATIVE (NEGATIVE); PH,URINE 5.5 (5.0-8.0); POTASSIUM 4.3 mmol/L (3.5-5.1); PROTEIN,URINE NEGATIVE (NEGATIVE); SODIUM SERUM 136 mmol/L (136-145); TOTAL PROTEIN, SERUM 6.6 g/dL (6.0-8.3); TROPONIN I < 0.04 ng/mL (0.00-0.06); UREA NITROGEN, BLOOD 9 mg/dL (7-18); UROBILINOGEN,URINE 0.2 mg/dL (0.2-1.0)
[2020-09-13 08:25] LABS: PARTIAL THROMBOPLASTIN TIME 24.6 SEC (26.3-35.5)
[2020-09-13 08:28] LABS: B-TYPE NATRIURETIC PEPTIDE 727 pg/mL (0-100)
[2020-09-13] MEDS ORDERED: ACETAMINOPHEN 500 MG TABLET ONE (08:30)
[2020-09-13 08:38] LABS: BACTERIA,URINE Rare /HPF (None Seen); RBC,URINE None Seen /HPF (0-1); SQUAMOUS EPITHELIAL CELL,UR Rare /HPF (0-2); WBC,URINE 0-1 /HPF (0-1)
[2020-09-13] MEDS ORDERED: KETOROLAC 30MG VIAL (30MG/ML) ONE (10:11)
[2020-09-13] MEDS ORDERED: KETOROLAC 30MG VIAL (30MG/ML) IV PRN (10:15)
[2020-09-13] MEDS ORDERED: AZITHROMYCIN 500MG+NS 250ML 250 ML IV SCH (10:15)
[2020-09-13] MEDS ORDERED: ERGOCALCIFEROL (VITAMIN D2) 50,000 UNIT CAPSULE PO SCH (10:15)
[2020-09-13] MEDS ORDERED: ONDANSETRON 4MG INJ IV PRN (10:15)
[2020-09-13] MEDS ORDERED: ACETAMINOPHEN 325 MG TAB PO PRN ×2 (10:15)
[2020-09-13] MEDS ORDERED: MORPHINE 2 MG SYG IV PRN (10:15)
[2020-09-13] MEDS ORDERED: CEFTRIAXONE 1G VIAL IV SCH (10:15)
[2020-09-13] MEDS: DOXYCYCLINE 100MG+NS 250ML 250 ML IV SCH ×2 (10:15→20:18)
[2020-09-13] MEDS ORDERED: DOXYCYCLINE 100MG+NS 250ML 250 ML IV ONE (10:59)
[2020-09-13] MEDS ORDERED: AZITHROMYCIN 500MG+NS 250ML 250 ML IV ONE (10:59)
[2020-09-13] MEDS ORDERED: CEFTRIAXONE 1G VIAL ONE (11:00)
[2020-09-13] MEDS ORDERED: ERGOCALCIFEROL (VITAMIN D2) 50,000 UNIT CAPSULE ONE (11:00)
[2020-09-13 12:39] VITALS: BP 106/60
[2020-09-13 16:51] VITALS: BP 106/63
[2020-09-13 20:21] VITALS: BP 106/68
[2020-09-13] MEDS ORDERED: FAMOTIDINE 20MG VIAL IV SCH (21:00)
[2020-09-13] MEDS ORDERED: FUROSEMIDE 40MG VIAL IVP SCH (21:00)
[2020-09-13 23:35] VITALS: BP 114/66
[2020-09-13 23:49] LABS: AMPHET/METH SCREEN,URINE NEGATIVE (NEGATIVE); BARBITURATE SCREEN, URINE NEGATIVE (NEGATIVE); BENZODIAZEPINES SCREEN,URINE NEGATIVE (NEGATIVE); CANNABINOID SCREEN,URINE NEGATIVE (NEGATIVE); COCAINE SCREEN,URINE POSITIVE (NEGATIVE); OPIATE SCREEN,URINE NEGATIVE (NEGATIVE); PHENCYCLIDINE SCREEN,URINE NEGATIVE (NEGATIVE)
[2020-09-14] MEDS ORDERED: ZINC SULFATE 220 CAPSULE PO SCH (09:00)
[2020-09-14] MEDS ORDERED: CARVEDILOL 3.125 MG TABLET PO SCH (09:00)
[2020-09-14] MEDS ORDERED: LISINOPRIL 5 MG TABLET PO SCH (09:00)
[2020-09-14] MEDS ORDERED: ASCORBIC ACID 500 MG TAB PO SCH (09:00)
[2020-09-14] MEDS ORDERED: ENOXAPARIN SODIUM 40 MG/0.4 ML SYRINGE SQ SCH (09:00)
== END 2020-09-14 | disposition left against medical advice (07) | DRG 194 ==
LOC: EDH 06:31 → EDHIP 06:32 → 2DH 12:18
PROVIDERS: ADMIT Internal Medicine; ATTEND Internal Medicine
DX: I50.43 Acute on chronic combined systolic (congestive) and diastolic (congestive) heart failure (principal); F14.10 Cocaine abuse, uncomplicated; I42.9 Cardiomyopathy, unspecified; J18.9 Pneumonia, unspecified organism; J96.01 Acute respiratory failure with hypoxia; Z86.16 Personal history of COVID-19; Z53.29 Procedure and treatment not carried out because of patient's decision for other reasons; Z91.19 Patient's noncompliance with other medical treatment and regimen; Z95.810 Presence of automatic (implantable) cardiac defibrillator; Z82.49 Family history of ischemic heart disease and other diseases of the circulatory system; Z20.822 Contact with and (suspected) exposure to COVID-19
CPT/HCPCS: 36415; 70486; 71045; 80053; 80305; 81001; 82550; 82948; 83605; 83874; 83880; 84145; 84484; 85025; 85378; 85610; 85730; 86140; 86900; 86901; 87040; 87088; 87426; 87449; 87804; 93005; G0378; J0456; J0696; J1885; J1940; J3490

== ENCOUNTER 2020-10-11 02:29 | Observation (INO) | payer MEDICAID ==
[~2020-10-11] VITALS: Ht 167.6 cm; Wt 113.4 kg
[~2020-10-11 02:29] MED LIST changes: -LISI2.5T13 PO; +LISI2.5T2 PO
[2020-10-11 03:22] LABS: BASOPHILS % (AUTO) 0.3 % (0.0-5.0); EOSINOPHILS % (AUTO) 0.2 % (0.0-8.0); LYMPHOCYTES % (AUTO) 21.5 % (21.0-51.0); MEAN CORPUSCULAR HEMOGLOBIN 27.6 pg (27.0-33.0); MEAN CORPUSCULAR HGB CONC 32.7 g/dL (32.0-36.0); MEAN CORPUSCULAR VOLUME 84.5 fL (79-99); MONOCYTES % (AUTO) 5.1 % (3.0-13.0); NEUTROPHILS % (AUTO) 72.6 % (40.0-77.0); PLATELET COUNT (AUTO) 247 K/uL (130-400); RED BLOOD CELL COUNT(AUTO) 4.38 MIL/uL (4.50-6.20); RED CELL DISTRIBUTION WIDTH 14.7 % (11.0-15.5); WHITE BLOOD COUNT (AUTO) 9.3 K/uL (4.8-10.8)
[2020-10-11 03:31] LABS: APPEARANCE,URINE Clear (CLEAR); BILIRUBIN,URINE Negative (NEGATIVE); COLOR,URINE Dark Yellow (YELLOW); GLUCOSE, URINE (UA) Negative (NEGATIVE); KETONES,URINE Negative (NEGATIVE); LEUKOCYTE ESTERASE ,URINE Negative (NEGATIVE); NITRATE,URINE Negative (NEGATIVE); OCCULT BLOOD,URINE Negative (NEGATIVE); PH,URINE 5.5 (5.0-8.0); PROTEIN,URINE POS 2+ mg/dL (NEGATIVE)
[2020-10-11 03:37] LABS: INR 1.33 (0.85-1.15); PROTHROMBIN TIME 14.1 SEC (9.6-11.6)
[2020-10-11 03:38] LABS: AMPHET/METH SCREEN,URINE NEGATIVE (NEGATIVE); BARBITURATE SCREEN, URINE NEGATIVE (NEGATIVE); BENZODIAZEPINES SCREEN,URINE NEGATIVE (NEGATIVE); CANNABINOID SCREEN,URINE NEGATIVE (NEGATIVE); COCAINE SCREEN,URINE POSITIVE (NEGATIVE); OPIATE SCREEN,URINE NEGATIVE (NEGATIVE); PARTIAL THROMBOPLASTIN TIME 23.6 SEC (26.3-35.5); PHENCYCLIDINE SCREEN,URINE NEGATIVE (NEGATIVE)
[2020-10-11 03:40] LABS: BACTERIA,URINE Rare /HPF (None Seen); RBC,URINE 0-1 /HPF (0-1); WBC,URINE 0-1 /HPF (0-1)
[2020-10-11 03:43] LABS: CREATININE 1.1 mg/dL (0.5-1.5); POTASSIUM 4.6 mmol/L (3.5-5.1)
[2020-10-11 03:47] LABS: ALBUMIN 3.6 g/dL (3.5-5.0); TOTAL PROTEIN, SERUM 6.8 g/dL (6.0-8.3)
[2020-10-11] MEDS ORDERED: ASPIRIN 325 MG TABLET ONE (04:07)
[2020-10-11] MEDS ORDERED: FUROSEMIDE 10 MG/ML 4ML VIAL ONE (04:07)
[2020-10-11] MEDS ORDERED: ACETAMINOPHEN EXTRA STRENGTH 500 MG TABLET ONE (04:19)
[2020-10-11] MEDS ORDERED: KETOROLAC TROMETHAMINE 30MG/ML ONE (05:27)
[2020-10-11] MEDS ORDERED: DiphenhydrAMINE HCL 50 MG/ML VIAL IV PRN (05:30)
[2020-10-11] MEDS ORDERED: ACETAMINOPHEN 325 MG TAB PO PRN ×2 (05:30)
[2020-10-11] MEDS ORDERED: MAG HYDROX/AL HYDROX/SIMETH ES 30 ML SUSP UDCUP PO PRN (05:30)
[2020-10-11] MEDS ORDERED: NITROGLYCERIN 0.4 MG SL TAB SL PRN (05:30)
[2020-10-11] MEDS ORDERED: LACTULOSE 20 GM/30 ML UDCUP PO PRN (05:30)
[2020-10-11] MEDS ORDERED: GUAIFENESIN-DM 200/20 MG 10 ML PO PRN (05:30)
[2020-10-11] MEDS ORDERED: DIPHENHYDRAMINE HCL 25 MG CAPSULE PO PRN (05:30)
[2020-10-11] MEDS ORDERED: POTASSIUM CHLORIDE 20MEQ/100ML 100 ML IV PRN ×2 (05:45)
[2020-10-11] MEDS ORDERED: CHLORDIAZEPOXIDE HCL 25 MG CAP PO PRN (05:45)
[2020-10-11] MEDS ORDERED: PHARMACY COMMUNICATION MISC PRN (05:45)
[2020-10-11] MEDS ORDERED: POTASSIUM CHLORIDE 10% ELIXIR 20 MEQ/15 ML UDCUP PO PRN (05:45)
[2020-10-11] MEDS ORDERED: POTASSIUM CHLORIDE 20 MEQ ERTAB PO PRN (05:45)
[2020-10-11] MEDS ORDERED: LORAZEPAM 2 MG/ML 1 ML VIAL IVP PRN (05:45)
[2020-10-11] MEDS: IPRATROPIUM/ALBUTEROL SULFATE 3 ML SOLUTION IH SCH ×4 (10:00→22:00)
[2020-10-11 10:45] VITALS: BP 118/76
[2020-10-11 12:38] LABS: CREATININE 1.3 mg/dL (0.5-1.5); MAGNESIUM 1.8 mg/dL (1.80-2.40); POTASSIUM 3.7 mmol/L (3.5-5.1)
[2020-10-11] MEDS: FUROSEMIDE 10 MG/ML 2ML VIAL IV SCH ×3 (14:00→21:10)
[2020-10-11] MEDS: FAMOTIDINE/PF 20 MG/2 ML VIAL IV SCH (15:19)
[2020-10-11] MEDS: DOXYCYCLINE 100MG+NS 250ML 250 ML IV SCH ×2 (15:19→17:28)
[2020-10-11] MEDS: FOLIC ACID 1 MG TABLET PO SCH (15:20)
[2020-10-11] MEDS: MULTIVITAMIN TABLET PO SCH (15:20)
[2020-10-11] MEDS: ASPIRIN 325MG EC TAB 325 MG TABLET.DR PO SCH (15:20)
[2020-10-11] MEDS: ENOXAPARIN SODIUM 40 MG/0.4 ML SYRINGE SQ SCH (15:21)
[2020-10-11] MEDS: CARVEDILOL 6.25 MG TABLET PO SCH ×2 (15:21→21:10)
[2020-10-11] MEDS: LORAZEPAM 2 MG/ML 1 ML VIAL IVP PRN ×2 (15:22→23:52)
[2020-10-11] MEDS: LISINOPRIL 2.5 MG TABLET PO SCH (15:22)
[2020-10-11 16:00] VITALS: BP 118/72
[2020-10-11] MEDS: CHLORDIAZEPOXIDE HCL 25 MG CAP PO PRN (17:29)
[2020-10-11] MEDS: MAGNESIUM 2GM PREMIX 50ML 50 ML IV PRN ×2 (17:33→18:31)
[2020-10-11 20:00] VITALS: BP 119/78
[2020-10-11] MEDS ORDERED: MIRTAZAPINE 15 MG TABLET PO SCH (21:00)
[2020-10-11] MEDS: ONDANSETRON HCL 4 MG/2 ML VIAL IV PRN (23:53)
[2020-10-12] VITALS: BP 116/52
[2020-10-12] MEDS: IPRATROPIUM/ALBUTEROL SULFATE 3 ML SOLUTION IH SCH (02:00)
[2020-10-12 04:00] VITALS: BP 120/86
[2020-10-12 05:19] LABS: BASOPHILS % (AUTO) 0.5 % (0.0-5.0); EOSINOPHILS % (AUTO) 1.9 % (0.0-8.0); HEMATOCRIT 39.8 % (42-54); LYMPHOCYTES % (AUTO) 25.6 % (21.0-51.0); MEAN CORPUSCULAR HEMOGLOBIN 26.9 pg (27.0-33.0); MEAN CORPUSCULAR HGB CONC 30.4 g/dL (32.0-36.0); MEAN CORPUSCULAR VOLUME 88.4 fL (79-99); MONOCYTES % (AUTO) 7.6 % (3.0-13.0); NEUTROPHILS % (AUTO) 63.9 % (40.0-77.0); PLATELET COUNT (AUTO) 244 K/uL (130-400); RED CELL DISTRIBUTION WIDTH 14.6 % (11.0-15.5); WHITE BLOOD COUNT (AUTO) 6.5 K/uL (4.8-10.8)
[2020-10-12 05:48] LABS: CREATININE 1.3 mg/dL (0.5-1.5); POTASSIUM 4.2 mmol/L (3.5-5.1)
[2020-10-12] MEDS: DOXYCYCLINE 100MG+NS 250ML 250 ML IV SCH (06:14)
[2020-10-12] MEDS: FUROSEMIDE 10 MG/ML 2ML VIAL IV SCH (06:14)
[2020-10-12] MEDS: LORAZEPAM 2 MG/ML 1 ML VIAL IVP PRN (06:15)
[2020-10-12] MEDS: CHLORDIAZEPOXIDE HCL 25 MG CAP PO PRN ×2 (06:15→11:21)
[2020-10-12] MEDS: ONDANSETRON HCL 4 MG/2 ML VIAL IV PRN (06:15)
[2020-10-12] MEDS ORDERED: FUROSEMIDE 10 MG/ML 4ML VIAL ONE (06:22)
[2020-10-12 07:00] VITALS: BP 97/65
[2020-10-12] MEDS: CARVEDILOL 6.25 MG TABLET PO SCH (09:00)
[2020-10-12] MEDS: LISINOPRIL 2.5 MG TABLET PO SCH (09:00)
[2020-10-12] MEDS: FAMOTIDINE/PF 20 MG/2 ML VIAL IV SCH (11:02)
[2020-10-12] MEDS: ASPIRIN 325MG EC TAB 325 MG TABLET.DR PO SCH (11:02)
[2020-10-12] MEDS: FOLIC ACID 1 MG TABLET PO SCH (11:03)
[2020-10-12] MEDS: MULTIVITAMIN TABLET PO SCH (11:04)
[2020-10-12] MEDS: ENOXAPARIN SODIUM 40 MG/0.4 ML SYRINGE SQ SCH (11:04)
[2020-10-12 11:30] VITALS: BP 104/74
== END 2020-10-12 13:29 | disposition left against medical advice (07) ==
LOC: EDH 02:29 → EDHIP 02:30 → UNDOADMOB 05:26 → EDHIP 05:26 → 4BH 10:19
PROVIDERS: ADMIT Family Medicine; ATTEND Family Medicine
DX: I11.0 Hypertensive heart disease with heart failure (principal); I50.43 Acute on chronic combined systolic (congestive) and diastolic (congestive) heart failure; J96.01 Acute respiratory failure with hypoxia; J20.9 Acute bronchitis, unspecified; I42.7 Cardiomyopathy due to drug and external agent; E11.9 Type 2 diabetes mellitus without complications; F14.10 Cocaine abuse, uncomplicated; I25.10 Atherosclerotic heart disease of native coronary artery without angina pectoris; F41.9 Anxiety disorder, unspecified; F32.9 Major depressive disorder, single episode, unspecified; F17.210 Nicotine dependence, cigarettes, uncomplicated; Z86.16 Personal history of COVID-19; Z87.01 Personal history of pneumonia (recurrent); Z95.810 Presence of automatic (implantable) cardiac defibrillator; Z91.19 Patient's noncompliance with other medical treatment and regimen; Z79.82 Long term (current) use of aspirin; Z79.899 Other long term (current) drug therapy
CPT/HCPCS: 36415 ×2; 71045; 80048; 80053; 80305; 81001; 82948; 83690; 83735 ×2; 83880; 84484; 85025 ×2; 85610; 85730; 93005; 94640; 94664; 96365; 96366 ×2; 96368; 96372 ×2; 96375; 96376 ×2; 99285; G0378 ×31; J1650 ×2; J1885; J1940 ×5; J2060 ×3; J2405 ×2; J3475; J3490 ×4

== ENCOUNTER 2020-10-16 03:19 | Observation (INO) | payer MEDICAID ==
[~2020-10-16] VITALS: Ht 167.6 cm; Wt 116.7 kg
[2020-10-16] MEDS ORDERED: ASPIRIN 325 MG TABLET ONE (04:17)
[2020-10-16] MEDS ORDERED: FUROSEMIDE 10 MG/ML 4ML VIAL ONE ×2 (04:17→15:40)
[2020-10-16 04:19] LABS: BASOPHILS % (AUTO) 0.2 % (0.0-5.0); EOSINOPHILS % (AUTO) 0.1 % (0.0-8.0); HEMATOCRIT 42.5 % (42-54); LYMPHOCYTES % (AUTO) 21.4 % (21.0-51.0); MEAN CORPUSCULAR HEMOGLOBIN 26.7 pg (27.0-33.0); MEAN CORPUSCULAR HGB CONC 31.1 g/dL (32.0-36.0); MEAN CORPUSCULAR VOLUME 85.9 fL (79-99); MONOCYTES % (AUTO) 6.1 % (3.0-13.0); PLATELET COUNT (AUTO) 273 K/uL (130-400); RED BLOOD CELL COUNT(AUTO) 4.95 MIL/uL (4.50-6.20); RED CELL DISTRIBUTION WIDTH 14.5 % (11.0-15.5); WHITE BLOOD COUNT (AUTO) 8.5 K/uL (4.8-10.8)
[2020-10-16 04:25] LABS: CREATININE 1.4 mg/dL (0.5-1.5); POTASSIUM 4.1 mmol/L (3.5-5.1)
[2020-10-16 04:30] LABS: ALBUMIN 4.4 g/dL (3.5-5.0); BILIRUBIN,TOTAL 0.6 mg/dL (0.2-1.0); TOTAL PROTEIN, SERUM 8.4 g/dL (6.0-8.3)
[2020-10-16 04:31] LABS: INR 1.19 (0.85-1.15); PROTHROMBIN TIME 12.8 SEC (9.6-11.6)
[2020-10-16 04:32] LABS: PARTIAL THROMBOPLASTIN TIME 24.7 SEC (26.3-35.5)
[2020-10-16 04:43] LABS: APPEARANCE,URINE Clear (CLEAR); BILIRUBIN,URINE Negative (NEGATIVE); COLOR,URINE Yellow (YELLOW); GLUCOSE, URINE (UA) Negative (NEGATIVE); KETONES,URINE Trace mg/dL (NEGATIVE); LEUKOCYTE ESTERASE ,URINE Negative (NEGATIVE); NITRATE,URINE Negative (NEGATIVE); OCCULT BLOOD,URINE Negative (NEGATIVE); PH,URINE 5.5 (5.0-8.0); PROTEIN,URINE POS 2+ mg/dL (NEGATIVE); UROBILINOGEN,URINE 0.2 mg/dL (0.2-1.0)
[2020-10-16 04:43] LABS: B-TYPE NATRIURETIC PEPTIDE 1580 pg/mL (0-100)
[2020-10-16 04:50] LABS: AMPHET/METH SCREEN,URINE NEGATIVE (NEGATIVE); BARBITURATE SCREEN, URINE NEGATIVE (NEGATIVE); BENZODIAZEPINES SCREEN,URINE POSITIVE (NEGATIVE); CANNABINOID SCREEN,URINE NEGATIVE (NEGATIVE); COCAINE SCREEN,URINE POSITIVE (NEGATIVE); OPIATE SCREEN,URINE NEGATIVE (NEGATIVE); PHENCYCLIDINE SCREEN,URINE NEGATIVE (NEGATIVE)
[2020-10-16 04:58] LABS: BACTERIA,URINE Rare /HPF (None Seen); RBC,URINE 0-1 /HPF (0-1); WBC,URINE 0-1 /HPF (0-1)
[2020-10-16] MEDS ORDERED: KETOROLAC TROMETHAMINE 30MG/ML ONE (05:09)
[2020-10-16] MEDS ORDERED: GUAIFENESIN-DM 200/20 MG 10 ML PO PRN (05:30)
[2020-10-16] MEDS ORDERED: DiphenhydrAMINE HCL 50 MG/ML VIAL IV PRN (05:30)
[2020-10-16] MEDS ORDERED: ACETAMINOPHEN 325 MG TAB PO PRN ×2 (05:30)
[2020-10-16] MEDS: FUROSEMIDE 10 MG/ML 4ML VIAL IV SCH ×3 (05:30→21:00)
[2020-10-16] MEDS ORDERED: DIPHENHYDRAMINE HCL 25 MG CAPSULE PO PRN (05:30)
[2020-10-16] MEDS ORDERED: LACTULOSE 20 GM/30 ML UDCUP PO PRN (05:30)
[2020-10-16] MEDS ORDERED: NITROGLYCERIN 0.4 MG SL TAB SL PRN (05:30)
[2020-10-16] MEDS ORDERED: MAG HYDROX/AL HYDROX/SIMETH ES 30 ML SUSP UDCUP PO PRN (05:30)
[2020-10-16] MEDS ORDERED: ONDANSETRON HCL 4 MG/2 ML VIAL IV PRN (05:30)
[2020-10-16] MEDS ORDERED: GLUCAGON 1MG KIT 1 MG ML IM PRN (07:45)
[2020-10-16] MEDS ORDERED: DEXTROSE 50%-WATER 50 ML DISP.SYRIN IV PRN (07:45)
[2020-10-16] MEDS ORDERED: THIAMINE HCL 100 MG TABLET ONE (08:18)
[2020-10-16] MEDS ORDERED: FOLIC ACID 1 MG TABLET ONE (08:18)
[2020-10-16] MEDS: FOLIC ACID 1 MG TABLET PO SCH (09:00)
[2020-10-16] MEDS: THIAMINE HCL 100 MG TABLET PO SCH (09:00)
[2020-10-16] MEDS ORDERED: LORAZEPAM 2 MG/ML 1 ML VIAL ONE (10:16)
[2020-10-16] MEDS: LISINOPRIL 5 MG TABLET PO SCH (13:30)
[2020-10-16] MEDS ORDERED: LISINOPRIL 5 MG TABLET ONE (15:40)
[2020-10-16 16:13] VITALS: BP 100/69
[2020-10-16 20:25] VITALS: BP 102/76
[2020-10-16 23:51] VITALS: BP 117/57
[2020-10-17] MEDS ORDERED: MIRTAZAPINE 15 MG TABLET ONE (01:58)
[2020-10-17 05:08] VITALS: BP 110/75
[2020-10-17] MEDS ORDERED: LORAZEPAM 1 MG TABLET ONE (05:25)
[2020-10-17] MEDS: FUROSEMIDE 10 MG/ML 4ML VIAL IV SCH (05:29)
[2020-10-17] MEDS ORDERED: LORAZEPAM 1 MG TABLET PO ONE (05:30)
[2020-10-17 08:00] VITALS: BP 102/72
[2020-10-17 09:10] LABS: BASOPHILS % (AUTO) 0.3 % (0.0-5.0); HEMATOCRIT 36.7 % (42-54); LYMPHOCYTES % (AUTO) 27.4 % (21.0-51.0); MEAN CORPUSCULAR HEMOGLOBIN 26.8 pg (27.0-33.0); MEAN CORPUSCULAR HGB CONC 31.1 g/dL (32.0-36.0); MEAN CORPUSCULAR VOLUME 86.4 fL (79-99); MONOCYTES % (AUTO) 8.5 % (3.0-13.0); NEUTROPHILS % (AUTO) 60.3 % (40.0-77.0); PLATELET COUNT (AUTO) 234 K/uL (130-400); RED BLOOD CELL COUNT(AUTO) 4.25 MIL/uL (4.50-6.20); RED CELL DISTRIBUTION WIDTH 14.7 % (11.0-15.5); WHITE BLOOD COUNT (AUTO) 6.1 K/uL (4.8-10.8)
[2020-10-17] MEDS: THIAMINE HCL 100 MG TABLET PO SCH (09:11)
[2020-10-17] MEDS: FOLIC ACID 1 MG TABLET PO SCH (09:11)
[2020-10-17] MEDS: LISINOPRIL 5 MG TABLET PO SCH (09:12)
[2020-10-17 09:20] LABS: CREATININE 1.4 mg/dL (0.5-1.5); POTASSIUM 3.6 mmol/L (3.5-5.1)
[2020-10-17 09:32] LABS: B-TYPE NATRIURETIC PEPTIDE 851 pg/mL (0-100)
[2020-10-17 11:37] VITALS: BP 96/65
[2020-10-17] MEDS ORDERED: FUROSEMIDE 40 MG TABLET PO SCH (17:00)
[2020-10-17] MEDS ORDERED: MIRTAZAPINE 15 MG TABLET PO SCH (21:00)
== END 2020-10-17 14:50 | disposition home or self-care (01) ==
LOC: EDH 03:19 → EDHIP 03:20 → 4CH 15:51
PROVIDERS: ADMIT Family Medicine; ATTEND Family Medicine
DX: I11.0 Hypertensive heart disease with heart failure (principal); I50.43 Acute on chronic combined systolic (congestive) and diastolic (congestive) heart failure; Z20.822 Contact with and (suspected) exposure to COVID-19; J96.01 Acute respiratory failure with hypoxia; I42.7 Cardiomyopathy due to drug and external agent; T50.905A Adverse effect of unspecified drugs, medicaments and biological substances, initial encounter; I42.0 Dilated cardiomyopathy; F41.9 Anxiety disorder, unspecified; F32.9 Major depressive disorder, single episode, unspecified; F17.200 Nicotine dependence, unspecified, uncomplicated; F14.10 Cocaine abuse, uncomplicated; Z86.16 Personal history of COVID-19; Z87.01 Personal history of pneumonia (recurrent); Z95.810 Presence of automatic (implantable) cardiac defibrillator; Z91.19 Patient's noncompliance with other medical treatment and regimen; Z79.899 Other long term (current) drug therapy
CPT/HCPCS: 36415 ×2; 70450; 71045; 80048; 80053; 80305; 81001; 82550; 83735; 83880 ×2; 84145; 84484; 85025 ×2; 85610; 85730; 87426; 93005; 96374; 96376; 99285; G0378 ×32; J1885; J1940 ×4; J2060; U0003

== ENCOUNTER 2020-10-21 01:26 | Emergency (ER) | payer MEDICAID ==
[~2020-10-21 01:26] MED LIST changes: +LISI2.5T13 PO; -LISI2.5T2 PO
== END 2020-10-21 02:12 | disposition home or self-care (01) ==
LOC: EDH 01:26
DX: R10.84 Generalized abdominal pain (principal); I11.0 Hypertensive heart disease with heart failure; I50.9 Heart failure, unspecified; F32.9 Major depressive disorder, single episode, unspecified; F41.9 Anxiety disorder, unspecified; F14.10 Cocaine abuse, uncomplicated; F19.10 Other psychoactive substance abuse, uncomplicated
CPT/HCPCS: 99281

== ENCOUNTER 2020-11-02 04:45 | Observation (INO) | payer MEDICAID ==
[~2020-11-02 04:45] MED LIST changes: -LISI2.5T13 PO; +LISI2.5T2 PO
[2020-11-02] MEDS ORDERED: FUROSEMIDE 10 MG/ML 4ML VIAL ONE (05:17)
[2020-11-02 05:20] LABS: BASOPHILS % (AUTO) 0.4 % (0.0-5.0); EOSINOPHILS % (AUTO) 1.7 % (0.0-8.0); HEMATOCRIT 40.5 % (42-54); LYMPHOCYTES % (AUTO) 28.9 % (21.0-51.0); MEAN CORPUSCULAR HEMOGLOBIN 25.5 pg (27.0-33.0); MEAN CORPUSCULAR HGB CONC 30.9 g/dL (32.0-36.0); MEAN CORPUSCULAR VOLUME 82.5 fL (79-99); MONOCYTES % (AUTO) 6.2 % (3.0-13.0); NEUTROPHILS % (AUTO) 62.7 % (40.0-77.0); PLATELET COUNT (AUTO) 300 K/uL (130-400); RED BLOOD CELL COUNT(AUTO) 4.91 MIL/uL (4.50-6.20); RED CELL DISTRIBUTION WIDTH 14.9 % (11.0-15.5); WHITE BLOOD COUNT (AUTO) 7.5 K/uL (4.8-10.8)
[2020-11-02 05:25] LABS: INR 1.3 (0.85-1.15); PROTHROMBIN TIME 13.8 SEC (9.6-11.6)
[2020-11-02 05:26] LABS: CARBON DIOXIDE 24 mmol/L (21-32); CHLORIDE 102 mmol/L (101-111); CREATININE 1.5 mg/dL (0.5-1.5); GLOMERULAR FILTR. RATE CALC 58 mL/min (>60); GLUCOSE,RANDOM 110 mg/dL (70-105); PARTIAL THROMBOPLASTIN TIME 22.7 SEC (26.3-35.5); POTASSIUM 4.1 mmol/L (3.5-5.1); SODIUM SERUM 137 mmol/L (136-145); UREA NITROGEN, BLOOD 24 mg/dL (7-18)
[2020-11-02 05:30] LABS: ALANINE AMINOTRANSFERASE 97 U/L (12-78); ALBUMIN 3.5 g/dL (3.5-5.0); ALCOHOL, BLOOD < 3 mg/dL (0-10); ASPARTATE AMINOTRANSFERASE 72 U/L (10-37); BILIRUBIN,TOTAL 0.8 mg/dL (0.2-1.0); CREATINE KINASE, TOTAL 136 U/L (21-232); LIPASE 112 U/L (114-286); TOTAL PROTEIN, SERUM 7.4 g/dL (6.0-8.3)
[2020-11-02 05:51] LABS: B-TYPE NATRIURETIC PEPTIDE 1620 pg/mL (0-100)
[2020-11-02] MEDS ORDERED: ASPIRIN 325 MG TABLET ONE (05:53)
[2020-11-02] MEDS ORDERED: LORAZEPAM 2 MG/ML 1 ML VIAL ONE (05:54)
[2020-11-02 06:22] LABS: APPEARANCE,URINE CLEAR (CLEAR); BILIRUBIN,URINE NEGATIVE (NEGATIVE); COLOR,URINE YELLOW (YELLOW); GLUCOSE, URINE (UA) NEGATIVE (NEGATIVE); KETONES,URINE NEGATIVE (NEGATIVE); LEUKOCYTE ESTERASE ,URINE NEGATIVE (NEGATIVE); NITRATE,URINE NEGATIVE (NEGATIVE); OCCULT BLOOD,URINE NEGATIVE (NEGATIVE); PH,URINE 5.5 (5.0-8.0); PROTEIN,URINE NEGATIVE (NEGATIVE); UROBILINOGEN,URINE 0.2 mg/dL (0.2-1.0)
[2020-11-02 06:23] LABS: AMPHET/METH SCREEN,URINE NEGATIVE (NEGATIVE); BARBITURATE SCREEN, URINE NEGATIVE (NEGATIVE); BENZODIAZEPINES SCREEN,URINE NEGATIVE (NEGATIVE); CANNABINOID SCREEN,URINE NEGATIVE (NEGATIVE); COCAINE SCREEN,URINE POSITIVE (NEGATIVE); OPIATE SCREEN,URINE NEGATIVE (NEGATIVE); PHENCYCLIDINE SCREEN,URINE NEGATIVE (NEGATIVE)
[2020-11-02] MEDS ORDERED: ACETAMINOPHEN 325 MG TAB PO PRN (07:30)
[2020-11-02] MEDS ORDERED: ONDANSETRON HCL 4 MG/2 ML VIAL IVP PRN (07:30)
[2020-11-02] MEDS ORDERED: FUROSEMIDE 40 MG TABLET PO SCH (08:00)
[2020-11-02] MEDS ORDERED: FAMOTIDINE 20MG TAB 20 MG TAB PO SCH (09:00)
[2020-11-02] MEDS ORDERED: ENOXAPARIN SODIUM 30 MG/0.3 ML SQ SCH (09:00)
== END 2020-11-02 07:48 | disposition left against medical advice (07) ==
LOC: EDH 04:45 → EDHIP 04:46 → INTOOBSV 04:46
PROVIDERS: ADMIT Hospitalist; ATTEND Hospitalist
DX: I11.0 Hypertensive heart disease with heart failure (principal); I50.43 Acute on chronic combined systolic (congestive) and diastolic (congestive) heart failure; I42.7 Cardiomyopathy due to drug and external agent; F41.9 Anxiety disorder, unspecified; F32.9 Major depressive disorder, single episode, unspecified; F17.200 Nicotine dependence, unspecified, uncomplicated; F14.10 Cocaine abuse, uncomplicated; Z86.16 Personal history of COVID-19; Z87.01 Personal history of pneumonia (recurrent); Z91.19 Patient's noncompliance with other medical treatment and regimen; Z95.810 Presence of automatic (implantable) cardiac defibrillator; Z79.82 Long term (current) use of aspirin; Z79.899 Other long term (current) drug therapy
CPT/HCPCS: 36415; 71045; 80053; 80305; 81003; 82550; 83605; 83690; 83880; 84484; 85025; 85610; 85730; 93005; 99285; G0378; J1940; J2060

== ENCOUNTER 2020-11-04 13:34 | Inpatient (IN) | payer MEDICAID ==
[~2020-11-04] VITALS: Ht 167.6 cm; Wt 118.2 kg
[~2020-11-04 13:34] MED LIST changes: +LISI2.5T13 PO; -LISI2.5T2 PO
[2020-11-04 14:49] LABS: BASOPHILS % (AUTO) 0.3 % (0.0-5.0); EOSINOPHILS % (AUTO) 1.6 % (0.0-8.0); HEMATOCRIT 36.1 % (42-54); LYMPHOCYTES % (AUTO) 22.6 % (21.0-51.0); MEAN CORPUSCULAR HGB CONC 32.7 g/dL (32.0-36.0); MEAN CORPUSCULAR VOLUME 79.5 fL (79-99); NEUTROPHILS % (AUTO) 66.2 % (40.0-77.0); PLATELET COUNT (AUTO) 279 K/uL (130-400); RED BLOOD CELL COUNT(AUTO) 4.54 MIL/uL (4.50-6.20); RED CELL DISTRIBUTION WIDTH 15.1 % (11.0-15.5); WHITE BLOOD COUNT (AUTO) 9.5 K/uL (4.8-10.8)
[2020-11-04] MEDS ORDERED: MORPHINE 2 MG SYG ONE (14:56)
[2020-11-04 15:06] LABS: CREATININE 1.6 mg/dL (0.5-1.5)
[2020-11-04 15:15] LABS: INR 1.74 (0.85-1.15)
[2020-11-04 15:16] LABS: PARTIAL THROMBOPLASTIN TIME 23.9 SEC (26.3-35.5)
[2020-11-04 15:24] LABS: ALBUMIN 3.4 g/dL (3.5-5.0); TOTAL PROTEIN, SERUM 6.9 g/dL (6.0-8.3)
[2020-11-04 15:53] LABS: APPEARANCE,URINE Clear (CLEAR); BILIRUBIN,URINE Small (NEGATIVE); COLOR,URINE Dark Yellow (YELLOW); GLUCOSE, URINE (UA) Negative (NEGATIVE); KETONES,URINE Trace mg/dL (NEGATIVE); LEUKOCYTE ESTERASE ,URINE Trace (NEGATIVE); NITRATE,URINE Negative (NEGATIVE); OCCULT BLOOD,URINE Negative (NEGATIVE); PH,URINE 5.5 (5.0-8.0); PROTEIN,URINE POS 2+ mg/dL (NEGATIVE)
[2020-11-04 16:00] LABS: AMPHET/METH SCREEN,URINE NEGATIVE (NEGATIVE); BARBITURATE SCREEN, URINE NEGATIVE (NEGATIVE); BENZODIAZEPINES SCREEN,URINE NEGATIVE (NEGATIVE); CANNABINOID SCREEN,URINE NEGATIVE (NEGATIVE); COCAINE SCREEN,URINE POSITIVE (NEGATIVE); OPIATE SCREEN,URINE NEGATIVE (NEGATIVE); PHENCYCLIDINE SCREEN,URINE NEGATIVE (NEGATIVE)
[2020-11-04 16:04] LABS: BACTERIA,URINE Rare /HPF (None Seen); RBC,URINE None Seen /HPF (0-1); WBC,URINE 0-1 /HPF (0-1)
[2020-11-04 16:05] LABS: SQUAMOUS EPITHELIAL CELL,UR 0-2 /HPF (0-2)
[2020-11-04] MEDS ORDERED: ACETAMINOPHEN 325 MG TAB PO PRN ×2 (19:00)
[2020-11-04] MEDS ORDERED: ONDANSETRON 4MG INJ IV PRN (19:00)
[2020-11-04] MEDS ORDERED: MORPHINE 2 MG SYG IVP PRN (19:15)
[2020-11-04] MEDS ORDERED: LORAZEPAM 1 MG TABLET PO PRN (19:15)
[2020-11-04] MEDS: MIRTAZAPINE 15 MG TABLET PO SCH (21:00)
[2020-11-04] MEDS: FAMOTIDINE 20MG VIAL IV SCH (21:00)
[2020-11-04] MEDS: CARVEDILOL 6.25 MG TABLET PO SCH (21:00)
[2020-11-04] MEDS ORDERED: CARVEDILOL 6.25 MG TABLET PO ONE (22:02)
[2020-11-04] MEDS ORDERED: ACETAMINOPHEN 325 MG TAB ONE (22:02)
[2020-11-04] MEDS ORDERED: FAMOTIDINE 20MG VIAL IV ONE (22:03)
[2020-11-04] MEDS ORDERED: KETOROLAC 15MG/ML VIAL (15MG/ML) IV PRN (23:30)
[2020-11-05 02:50] VITALS: BP 105/75
[2020-11-05 05:24] LABS: BASOPHILS % (AUTO) 0.5 % (0.0-5.0); EOSINOPHILS % (AUTO) 0.5 % (0.0-8.0); HEMATOCRIT 35.4 % (42-54); MEAN CORPUSCULAR HEMOGLOBIN 25.6 pg (27.0-33.0); MEAN CORPUSCULAR HGB CONC 31.9 g/dL (32.0-36.0); MEAN CORPUSCULAR VOLUME 80.3 fL (79-99); NEUTROPHILS % (AUTO) 56.4 % (40.0-77.0); PLATELET COUNT (AUTO) 264 K/uL (130-400); RED BLOOD CELL COUNT(AUTO) 4.41 MIL/uL (4.50-6.20); RED CELL DISTRIBUTION WIDTH 15.1 % (11.0-15.5); WHITE BLOOD COUNT (AUTO) 7.7 K/uL (4.8-10.8)
[2020-11-05 06:00] LABS: ALBUMIN 3.1 g/dL (3.5-5.0); BILIRUBIN,TOTAL 2.2 mg/dL (0.2-1.0); CREATININE 1.7 mg/dL (0.5-1.5); POTASSIUM 4.3 mmol/L (3.5-5.1); TOTAL PROTEIN, SERUM 6.4 g/dL (6.0-8.3)
[2020-11-05 07:44] VITALS: BP 117/72
[2020-11-05] MEDS: ASPIRIN 81MG CHEW TAB PO SCH (08:35)
[2020-11-05] MEDS: FAMOTIDINE 20MG VIAL IV SCH ×2 (08:35→19:48)
[2020-11-05] MEDS: 0.9%NACL 1000ML 1,000 ML IV SCH ×2 (08:35→18:15)
[2020-11-05] MEDS: FUROSEMIDE 40 MG TABLET PO SCH ×2 (08:36→16:14)
[2020-11-05] MEDS: CARVEDILOL 6.25 MG TABLET PO SCH (08:36)
[2020-11-05] MEDS: MULTIVITAMIN TABLET PO SCH (08:36)
[2020-11-05] MEDS: THIAMINE HCL 100 MG TABLET PO SCH (08:37)
[2020-11-05] MEDS: LISINOPRIL 2.5 MG TABLET PO SCH (08:37)
[2020-11-05] MEDS ORDERED: NON-FORMULARY MEDICATION 1 EACH (Lisinopril 2.5 MG) PO SCH (09:00)
[2020-11-05] MEDS ORDERED: LISINOPRIL 2.5 MG TABLET PO SCH (09:00)
[2020-11-05] MEDS ORDERED: HEPARIN 10,000 UNIT VIAL IJ SCH (09:30)
[2020-11-05] MEDS: HEPARIN 25,000 UNITS/250ML D5W 250 ML IV SCH ×2 (09:43→16:19)
[2020-11-05 11:40] VITALS: BP 107/63
[2020-11-05 16:01] VITALS: BP 105/64
[2020-11-05 19:46] VITALS: BP 105/52
[2020-11-05] MEDS: MIRTAZAPINE 15 MG TABLET PO SCH (19:49)
[2020-11-05] MEDS: LORAZEPAM 1 MG TABLET PO PRN (19:50)
[2020-11-05 23:48] VITALS: BP 97/50
[2020-11-06 04:41] VITALS: BP 107/70
[2020-11-06] MEDS: MULTIVITAMIN TABLET PO SCH (08:36)
[2020-11-06] MEDS: LISINOPRIL 2.5 MG TABLET PO SCH (08:36)
[2020-11-06] MEDS: THIAMINE HCL 100 MG TABLET PO SCH (08:36)
[2020-11-06] MEDS: ASPIRIN 81MG CHEW TAB PO SCH (08:36)
[2020-11-06] MEDS: FUROSEMIDE 40 MG TABLET PO SCH ×2 (08:37→18:23)
[2020-11-06] MEDS: FAMOTIDINE 20MG VIAL IV SCH ×2 (08:38→20:43)
[2020-11-06] MEDS: CARVEDILOL 3.125 MG TABLET PO SCH ×2 (08:38→20:44)
[2020-11-06 09:00] VITALS: BP 127/87
[2020-11-06] MEDS ORDERED: HYDROMORPHONE 0.5 MG SYG (0.5MG/0.5ML) IVP SCH (09:15)
[2020-11-06] MEDS: HEPARIN 25,000 UNITS/250ML D5W 250 ML IV SCH (12:04)
[2020-11-06 13:22] LABS: BILIRUBIN,TOTAL 1.9 mg/dL (0.2-1.0); CREATININE 1.6 mg/dL (0.5-1.5); TOTAL PROTEIN, SERUM 6.1 g/dL (6.0-8.3)
[2020-11-06 13:57] VITALS: BP 132/73
[2020-11-06 17:16] LABS: TROPONIN I 1.53 ng/mL (0.00-0.06)
[2020-11-06 19:07] VITALS: BP 101/58
[2020-11-06] MEDS ORDERED: HYDROMORPHONE 0.5 MG SYG (0.5MG/0.5ML) ONE (20:40)
[2020-11-06] MEDS: MIRTAZAPINE 15 MG TABLET PO SCH (20:43)
[2020-11-06] MEDS ORDERED: HYDROMORPHONE 0.5 MG SYG (0.5MG/0.5ML) IVP PRN (20:45)
[2020-11-06 21:07] VITALS: BP 107/59
[2020-11-07 00:43] VITALS: BP 107/73
[2020-11-07] MEDS: LORAZEPAM 1 MG TABLET PO PRN (01:03)
[2020-11-07] MEDS: HEPARIN 25,000 UNITS/250ML D5W 250 ML IV SCH (02:41)
[2020-11-07 04:36] VITALS: BP 107/64
[2020-11-07 06:35] LABS: BASOPHILS % (AUTO) 0.1 % (0.0-5.0); EOSINOPHILS % (AUTO) 0.4 % (0.0-8.0); HEMATOCRIT 35.8 % (42-54); LYMPHOCYTES % (AUTO) 32.8 % (21.0-51.0); MEAN CORPUSCULAR HEMOGLOBIN 25.6 pg (27.0-33.0); MEAN CORPUSCULAR HGB CONC 31.8 g/dL (32.0-36.0); MEAN CORPUSCULAR VOLUME 80.4 fL (79-99); MONOCYTES % (AUTO) 10.6 % (3.0-13.0); NEUTROPHILS % (AUTO) 55.8 % (40.0-77.0); PLATELET COUNT (AUTO) 251 K/uL (130-400); RED BLOOD CELL COUNT(AUTO) 4.45 MIL/uL (4.50-6.20); RED CELL DISTRIBUTION WIDTH 15.2 % (11.0-15.5); WHITE BLOOD COUNT (AUTO) 6.9 K/uL (4.8-10.8)
[2020-11-07 07:15] LABS: ALBUMIN 2.8 g/dL (3.5-5.0); BILIRUBIN,TOTAL 1.3 mg/dL (0.2-1.0); CREATININE 1.3 mg/dL (0.5-1.5); POTASSIUM 3.5 mmol/L (3.5-5.1); TOTAL PROTEIN, SERUM 6.1 g/dL (6.0-8.3)
[2020-11-07 07:18] LABS: TROPONIN I 1.05 ng/mL (0.00-0.06)
[2020-11-07] MEDS: LISINOPRIL 2.5 MG TABLET PO SCH (08:00)
[2020-11-07] MEDS: FUROSEMIDE 40 MG TABLET PO SCH ×2 (08:01→16:21)
[2020-11-07] MEDS: MULTIVITAMIN TABLET PO SCH (08:02)
[2020-11-07] MEDS: ASPIRIN 81MG CHEW TAB PO SCH (08:02)
[2020-11-07] MEDS: THIAMINE HCL 100 MG TABLET PO SCH (08:02)
[2020-11-07] MEDS: CARVEDILOL 3.125 MG TABLET PO SCH (08:02)
[2020-11-07] MEDS: FAMOTIDINE 20MG VIAL IV SCH (08:03)
[2020-11-07 08:58] VITALS: BP 117/80
[2020-11-07] MEDS ORDERED: TRAMADOL HCL 50 MG TABLET PO PRN (11:30)
[2020-11-07] MEDS: APIXABAN 5 MG TABLET PO SCH ×2 (12:47→18:18)
[2020-11-07 13:41] VITALS: BP 89/62
[2020-11-07 14:38] VITALS: BP 96/63
[2020-11-07] MEDS ORDERED: CARV3.1262 PO (17:54)
[2020-11-07] MEDS ORDERED: FURO40TA7 PO (17:54)
[2020-11-07] MEDS ORDERED: APIX5TAB PO (17:54)
== END 2020-11-07 18:24 | disposition home or self-care (01) | DRG 197 ==
LOC: EDH 13:34 → EDHIP 18:53 → 4AH 11-05 02:54
PROVIDERS: ADMIT Hospitalist; ATTEND Hospitalist
DX: I74.3 Embolism and thrombosis of arteries of the lower extremities (principal); K72.00 Acute and subacute hepatic failure without coma; I50.43 Acute on chronic combined systolic (congestive) and diastolic (congestive) heart failure; N17.9 Acute kidney failure, unspecified; E11.22 Type 2 diabetes mellitus with diabetic chronic kidney disease; R16.0 Hepatomegaly, not elsewhere classified; E87.1 Hypo-osmolality and hyponatremia; N18.31 Chronic kidney disease, stage 3a; E88.09 Other disorders of plasma-protein metabolism, not elsewhere classified; I70.229 Atherosclerosis of native arteries of extremities with rest pain, unspecified extremity; I42.0 Dilated cardiomyopathy; I51.3 Intracardiac thrombosis, not elsewhere classified; I13.0 Hypertensive heart and chronic kidney disease with heart failure and stage 1 through stage 4 chronic kidney disease, or unspecified chronic kidney disease; I70.292 Other atherosclerosis of native arteries of extremities, left leg; F17.210 Nicotine dependence, cigarettes, uncomplicated; Z79.899 Other long term (current) drug therapy; Z86.16 Personal history of COVID-19; Z87.01 Personal history of pneumonia (recurrent); Z91.19 Patient's noncompliance with other medical treatment and regimen; Z95.810 Presence of automatic (implantable) cardiac defibrillator; I42.7 Cardiomyopathy due to drug and external agent; F14.10 Cocaine abuse, uncomplicated; F10.10 Alcohol abuse, uncomplicated
CPT/HCPCS: 36415; 71045; 71046; 76705; 78582; 80053; 80305; 81001; 81003; 82550; 83605; 83690; 83874; 83880; 84484; 85025; 85610; 85730; 93005; 93306; 93356; 93925; 93970; A9540; A9558; G0378; G0481; J1170; J1644; J1885; J1940; J2060; J3490

== ENCOUNTER → 2020-11-20 | Outpatient (CLI) | payer MEDICAID ==
[~2020-11-20] MED LIST changes: +APIX5TAB PO; +CARV3.1262 PO; -CARV6.2579 PO; +FURO40TA7 PO; -LISI2.5T13 PO; +LISI2.5T2 PO; -lorazepam
[2020-11-20 10:44] LABS: ALBUMIN 3.1 g/dL (3.5-5.0); BILIRUBIN,TOTAL 1.3 mg/dL (0.2-1.0); CREATININE 1.1 mg/dL (0.5-1.5); POTASSIUM 3.5 mmol/L (3.5-5.1); TOTAL PROTEIN, SERUM 7.2 g/dL (6.0-8.3)
== END | disposition home or self-care (01) ==
LOC: RAH 08:55
PROVIDERS: ATTEND Internal Medicine Gastroenterology
DX: R14.0 Abdominal distension (gaseous) (principal); R10.13 Epigastric pain; L29.9 Pruritus, unspecified
CPT/HCPCS: 36415; 74240; 80053

== ENCOUNTER 2020-11-29 04:08 | Emergency (ER) | payer MEDICAID ==
[2020-11-29 04:30] LABS: BASOPHILS % (AUTO) 0.4 % (0.0-5.0); EOSINOPHILS % (AUTO) 2.9 % (0.0-8.0); HEMATOCRIT 36.3 % (42-54); LYMPHOCYTES % (AUTO) 31.8 % (21.0-51.0); MEAN CORPUSCULAR HEMOGLOBIN 24.1 pg (27.0-33.0); MEAN CORPUSCULAR HGB CONC 31.1 g/dL (32.0-36.0); MEAN CORPUSCULAR VOLUME 77.6 fL (79-99); MONOCYTES % (AUTO) 7.1 % (3.0-13.0); NEUTROPHILS % (AUTO) 57.3 % (40.0-77.0); PLATELET COUNT (AUTO) 287 K/uL (130-400); RED BLOOD CELL COUNT(AUTO) 4.68 MIL/uL (4.50-6.20); RED CELL DISTRIBUTION WIDTH 16.1 % (11.0-15.5); WHITE BLOOD COUNT (AUTO) 5.5 K/uL (4.8-10.8)
[2020-11-29 04:34] LABS: APPEARANCE,URINE Clear (CLEAR); BILIRUBIN,URINE Negative (NEGATIVE); COLOR,URINE Yellow (YELLOW); GLUCOSE, URINE (UA) Negative (NEGATIVE); KETONES,URINE Negative (NEGATIVE); LEUKOCYTE ESTERASE ,URINE Negative (NEGATIVE); NITRATE,URINE Negative (NEGATIVE); OCCULT BLOOD,URINE Negative (NEGATIVE); PROTEIN,URINE POS 2+ mg/dL (NEGATIVE)
[2020-11-29 04:47] LABS: INR 1.32 (0.85-1.15)
[2020-11-29 04:48] LABS: PARTIAL THROMBOPLASTIN TIME 24.4 SEC (26.3-35.5)
[2020-11-29 04:50] LABS: CREATININE 1.2 mg/dL (0.5-1.5); POTASSIUM 3.9 mmol/L (3.5-5.1)
[2020-11-29 04:53] LABS: AMPHET/METH SCREEN,URINE NEGATIVE (NEGATIVE); BARBITURATE SCREEN, URINE NEGATIVE (NEGATIVE); BENZODIAZEPINES SCREEN,URINE NEGATIVE (NEGATIVE); CANNABINOID SCREEN,URINE NEGATIVE (NEGATIVE); COCAINE SCREEN,URINE NEGATIVE (NEGATIVE); OPIATE SCREEN,URINE NEGATIVE (NEGATIVE); PHENCYCLIDINE SCREEN,URINE NEGATIVE (NEGATIVE)
[2020-11-29 04:57] LABS: BILIRUBIN,TOTAL 1.1 mg/dL (0.2-1.0); TOTAL PROTEIN, SERUM 7.3 g/dL (6.0-8.3)
[2020-11-29 04:59] LABS: B-TYPE NATRIURETIC PEPTIDE 1320 pg/mL (0-100)
== END 2020-11-29 05:42 | disposition left against medical advice (07) ==
LOC: EDH 04:08
DX: R06.02 Shortness of breath (principal); F14.10 Cocaine abuse, uncomplicated; R06.01 Orthopnea; I11.0 Hypertensive heart disease with heart failure; I50.9 Heart failure, unspecified; E11.9 Type 2 diabetes mellitus without complications; F41.9 Anxiety disorder, unspecified; F32.9 Major depressive disorder, single episode, unspecified; Z95.810 Presence of automatic (implantable) cardiac defibrillator
CPT/HCPCS: 36415; 71045; 80053; 80305; 81003; 83880; 84484; 85025; 85610; 85730; 93005

== ENCOUNTER 2020-12-01 01:55 | Emergency (ER) | payer MEDICAID ==
[2020-12-01 02:37] LABS: APPEARANCE,URINE Clear (CLEAR); BILIRUBIN,URINE Negative (NEGATIVE); COLOR,URINE Yellow (YELLOW); GLUCOSE, URINE (UA) Negative (NEGATIVE); KETONES,URINE Negative (NEGATIVE); LEUKOCYTE ESTERASE ,URINE Negative (NEGATIVE); NITRATE,URINE Negative (NEGATIVE); OCCULT BLOOD,URINE Negative (NEGATIVE); PROTEIN,URINE Trace mg/dL (NEGATIVE)
[2020-12-01 02:45] LABS: AMPHET/METH SCREEN,URINE NEGATIVE (NEGATIVE); BARBITURATE SCREEN, URINE NEGATIVE (NEGATIVE); BENZODIAZEPINES SCREEN,URINE NEGATIVE (NEGATIVE); CANNABINOID SCREEN,URINE NEGATIVE (NEGATIVE); COCAINE SCREEN,URINE NEGATIVE (NEGATIVE); OPIATE SCREEN,URINE NEGATIVE (NEGATIVE); PHENCYCLIDINE SCREEN,URINE NEGATIVE (NEGATIVE)
[2020-12-01 02:49] LABS: BASOPHILS % (AUTO) 0.3 % (0.0-5.0); EOSINOPHILS % (AUTO) 1.7 % (0.0-8.0); HEMATOCRIT 37.2 % (42-54); LYMPHOCYTES % (AUTO) 29.3 % (21.0-51.0); MEAN CORPUSCULAR HEMOGLOBIN 24.4 pg (27.0-33.0); MEAN CORPUSCULAR HGB CONC 30.6 g/dL (32.0-36.0); MEAN CORPUSCULAR VOLUME 79.5 fL (79-99); NEUTROPHILS % (AUTO) 60.5 % (40.0-77.0); PLATELET COUNT (AUTO) 301 K/uL (130-400); RED BLOOD CELL COUNT(AUTO) 4.68 MIL/uL (4.50-6.20); RED CELL DISTRIBUTION WIDTH 16.3 % (11.0-15.5); WHITE BLOOD COUNT (AUTO) 5.8 K/uL (4.8-10.8)
[2020-12-01 02:55] LABS: CREATININE 1.3 mg/dL (0.5-1.5); POTASSIUM 3.8 mmol/L (3.5-5.1)
[2020-12-01 02:57] LABS: INR 1.42 (0.85-1.15)
[2020-12-01 02:58] LABS: PARTIAL THROMBOPLASTIN TIME 24.8 SEC (26.3-35.5)
[2020-12-01 02:59] LABS: ALBUMIN 3.4 g/dL (3.5-5.0); BILIRUBIN,TOTAL 1.4 mg/dL (0.2-1.0); CRP QUANTITATIVE 9.5 mg/L (0.00-9.0); MAGNESIUM 2.1 mg/dL (1.80-2.40); TOTAL PROTEIN, SERUM 7.6 g/dL (6.0-8.3)
[2020-12-01 03:04] LABS: B-TYPE NATRIURETIC PEPTIDE 1520 pg/mL (0-100)
[2020-12-01] MEDS ORDERED: FUROSEMIDE 10 MG/ML 4ML VIAL ONE (03:48)
== END 2020-12-01 04:01 | disposition left against medical advice (07) ==
LOC: EDH 01:55
DX: I11.0 Hypertensive heart disease with heart failure (principal); I50.9 Heart failure, unspecified; I43 Cardiomyopathy in diseases classified elsewhere; R06.01 Orthopnea; R60.1 Generalized edema; E66.01 Morbid (severe) obesity due to excess calories; F41.9 Anxiety disorder, unspecified; F32.9 Major depressive disorder, single episode, unspecified; F14.10 Cocaine abuse, uncomplicated; Z95.810 Presence of automatic (implantable) cardiac defibrillator; Z68.41 Body mass index [BMI] 40.0-44.9, adult
CPT/HCPCS: 36415; 71045; 80053; 80305; 81003; 82550; 83605; 83690; 83735; 83880; 84484; 85025; 85610; 85730; 86140; 93005; 96374; 99285; J1940

== ENCOUNTER → 2021-01-13 | Outpatient (CLI) | payer MEDICAID ==
[~2021-01-13] MED LIST changes: +IOHEXOL-350 50ML VIAL IV ONE; +IOHEXOL-350 75 ML VIAL IV ONE
== END | disposition home or self-care (01) ==
LOC: RAH 08:13
PROVIDERS: ATTEND Internal Medicine Cardiovascular Disease
DX: I11.0 Hypertensive heart disease with heart failure (principal); I50.9 Heart failure, unspecified; R91.1 Solitary pulmonary nodule; N28.1 Cyst of kidney, acquired; R53.1 Weakness; K57.30 Diverticulosis of large intestine without perforation or abscess without bleeding; I70.292 Other atherosclerosis of native arteries of extremities, left leg
CPT/HCPCS: 75635; Q9967 ×2

== ENCOUNTER → 2021-02-06 | Outpatient (CLI) | payer MEDICAID ==
[~2021-02-06] MED LIST changes: -IOHEXOL-350 50ML VIAL IV ONE; -IOHEXOL-350 75 ML VIAL IV ONE
== END | disposition home or self-care (01) ==
LOC: SHCH 10:00
PROVIDERS: ATTEND Internal Medicine Cardiovascular Disease
DX: I87.2 Venous insufficiency (chronic) (peripheral) (principal); R00.0 Tachycardia, unspecified; R94.31 Abnormal electrocardiogram [ECG] [EKG]
CPT/HCPCS: 93005

== ENCOUNTER 2021-02-10 02:35 | Emergency (ER) | payer MEDICAID ==
[2021-02-10 02:40] VITALS: BP 130/61
[2021-02-10 03:16] LABS: BASOPHILS % (AUTO) 0.2 % (0.0-5.0); EOSINOPHILS % (AUTO) 0.2 % (0.0-8.0); HEMATOCRIT 38.8 % (42-54); LYMPHOCYTES % (AUTO) 10.2 % (21.0-51.0); MEAN CORPUSCULAR HEMOGLOBIN 23.6 pg (27.0-33.0); MEAN CORPUSCULAR HGB CONC 30.7 g/dL (32.0-36.0); MONOCYTES % (AUTO) 6.4 % (3.0-13.0); NEUTROPHILS % (AUTO) 82.7 % (40.0-77.0); PLATELET COUNT (AUTO) 231 K/uL (130-400); RED BLOOD CELL COUNT(AUTO) 5.04 MIL/uL (4.50-6.20); WHITE BLOOD COUNT (AUTO) 9.1 K/uL (4.8-10.8)
[2021-02-10 03:24] LABS: CREATININE 1.5 mg/dL (0.5-1.5); POTASSIUM 3.4 mmol/L (3.5-5.1)
[2021-02-10 03:28] LABS: ALBUMIN 3.6 g/dL (3.5-5.0); BILIRUBIN,TOTAL 1.2 mg/dL (0.2-1.0); MAGNESIUM 1.5 mg/dL (1.80-2.40); TOTAL PROTEIN, SERUM 7.8 g/dL (6.0-8.3)
[2021-02-10] MEDS ORDERED: HYDROCODONE/ACETAMINOPHEN 5/325 MG TAB PO ONE (03:30)
[2021-02-10 03:36] LABS: APPEARANCE,URINE Clear (CLEAR); BILIRUBIN,URINE Small (NEGATIVE); COLOR,URINE Dark Yellow (YELLOW); GLUCOSE, URINE (UA) Negative (NEGATIVE); KETONES,URINE Trace mg/dL (NEGATIVE); LEUKOCYTE ESTERASE ,URINE Trace (NEGATIVE); NITRATE,URINE Negative (NEGATIVE); OCCULT BLOOD,URINE Negative (NEGATIVE); PROTEIN,URINE 300 mg/dL (NEGATIVE)
[2021-02-10 03:43] LABS: AMPHET/METH SCREEN,URINE NEGATIVE (NEGATIVE); BARBITURATE SCREEN, URINE NEGATIVE (NEGATIVE); BENZODIAZEPINES SCREEN,URINE NEGATIVE (NEGATIVE); CANNABINOID SCREEN,URINE NEGATIVE (NEGATIVE); COCAINE SCREEN,URINE POSITIVE (NEGATIVE); OPIATE SCREEN,URINE NEGATIVE (NEGATIVE); PHENCYCLIDINE SCREEN,URINE NEGATIVE (NEGATIVE)
[2021-02-10 03:43] LABS: B-TYPE NATRIURETIC PEPTIDE 1390 pg/mL (0-100)
[2021-02-10 03:47] LABS: BACTERIA,URINE None Seen /HPF (None Seen); RBC,URINE None Seen /HPF (0-1); SQUAMOUS EPITHELIAL CELL,UR Rare /HPF (0-2); WBC,URINE 0-1 /HPF (0-1)
[2021-02-10 03:52] LABS: INR 1.27 (0.85-1.15); PROTHROMBIN TIME 13.5 SEC (9.6-11.6)
[2021-02-10] MEDS ORDERED: FUROSEMIDE 40MG VIAL IV ONE (04:00)
[2021-02-10] MEDS: MAGNESIUM OXIDE 400 MG TABLET PO SCH ×2 (04:00→06:58)
[2021-02-10] MEDS ORDERED: MAGNESIUM OXIDE 400 MG TABLET PO ONE (04:13)
[2021-02-10] MEDS ORDERED: FUROSEMIDE 40MG VIAL ONE (04:13)
[2021-02-10] MEDS ORDERED: HYDROCODONE/ACETAMINOPHEN 5/325 MG TAB ONE (04:14)
[2021-02-10] MEDS ORDERED: OXYMETAZOLINE HCL SPRAY 15 ML BOTTLE ONE (06:25)
[2021-02-10 06:34] VITALS: BP 110/56
[2021-02-10] MEDS ORDERED: MAGNESIUM OXIDE 400 MG TABLET PO SCH (07:00)
[2021-02-10] MEDS ORDERED: OXYMETAZOLINE HCL SPRAY 15 ML BOTTLE EN SCH (07:07)
== END 2021-02-10 07:23 | disposition home or self-care (01) ==
LOC: EDH 02:35
DX: I50.9 Heart failure, unspecified (principal); R07.89 Other chest pain; F14.10 Cocaine abuse, uncomplicated; E83.42 Hypomagnesemia; Z79.82 Long term (current) use of aspirin; Z79.01 Long term (current) use of anticoagulants; Z79.899 Other long term (current) drug therapy
CPT/HCPCS: 36415; 71045; 80053; 80305; 81001; 82550; 83735; 83880; 84484 ×2; 85025; 85610; 93005 ×2; 96374; 99285; J1940

== ENCOUNTER 2021-03-07 04:43 | Observation (INO) | payer MEDICAID ==
[~2021-03-07] VITALS: Ht 167.6 cm; Wt 121.2 kg
[~2021-03-07 04:43] MED LIST changes: +LISI2.5T13 PO; -LISI2.5T2 PO
[2021-03-07 04:52] VITALS: BP 138/92
[2021-03-07 05:49] LABS: BASOPHILS % (AUTO) 0.2 % (0.0-5.0); EOSINOPHILS % (AUTO) 0.5 % (0.0-8.0); HEMATOCRIT 41.2 % (42-54); LYMPHOCYTES % (AUTO) 23.9 % (21.0-51.0); MEAN CORPUSCULAR HEMOGLOBIN 23.9 pg (27.0-33.0); MEAN CORPUSCULAR HGB CONC 31.1 g/dL (32.0-36.0); MEAN CORPUSCULAR VOLUME 76.9 fL (79-99); NEUTROPHILS % (AUTO) 67.9 % (40.0-77.0); PLATELET COUNT (AUTO) 333 K/uL (130-400); RED BLOOD CELL COUNT(AUTO) 5.36 MIL/uL (4.50-6.20); RED CELL DISTRIBUTION WIDTH 21.6 % (11.0-15.5); WHITE BLOOD COUNT (AUTO) 8.6 K/uL (4.8-10.8)
[2021-03-07 05:59] LABS: INR 1.15 (0.85-1.15); PROTHROMBIN TIME 12.4 SEC (9.6-11.6)
[2021-03-07 06:00] LABS: PARTIAL THROMBOPLASTIN TIME 27.1 SEC (26.3-35.5)
[2021-03-07 06:02] LABS: ALBUMIN 3.5 g/dL (3.5-5.0); BILIRUBIN,TOTAL 1.1 mg/dL (0.2-1.0); CREATININE 1.2 mg/dL (0.5-1.5); TOTAL PROTEIN, SERUM 8.1 g/dL (6.0-8.3)
[2021-03-07 06:04] VITALS: BP 135/88
[2021-03-07] MEDS ORDERED: FUROSEMIDE 40MG VIAL IV ONE (06:30)
[2021-03-07] MEDS ORDERED: ASPIRIN 325MG TAB ONE (06:44)
[2021-03-07] MEDS ORDERED: ASPIRIN 325MG TAB PO ONE (07:00)
[2021-03-07] MEDS ORDERED: ACETAMINOPHEN 500 MG TABLET PO ONE (07:30)
[2021-03-07] MEDS ORDERED: LACTULOSE 20 GM/30 ML UDCUP PO PRN (08:30)
[2021-03-07] MEDS ORDERED: FUROSEMIDE 40MG VIAL IV SCH (08:30)
[2021-03-07] MEDS ORDERED: IPRATROPIUM/ALBUTEROL SULFATE 3 ML SOLUTION IH PRN (08:30)
[2021-03-07] MEDS ORDERED: ONDANSETRON 4MG INJ IV PRN (08:30)
[2021-03-07] MEDS ORDERED: ACETAMINOPHEN 325 MG TAB PO PRN ×2 (08:30)
[2021-03-07] MEDS ORDERED: FAMOTIDINE 20MG TAB PO SCH (09:00)
[2021-03-07] MEDS ORDERED: ENOXAPARIN SODIUM 40 MG/0.4 ML SYRINGE SQ SCH (09:00)
[2021-03-07] MEDS ORDERED: OMEP20TA25 PO (09:54)
[2021-03-07 10:13] VITALS: BP 133/71
[2021-03-07 10:37] LABS: AMPHET/METH SCREEN,URINE NEGATIVE (NEGATIVE); BARBITURATE SCREEN, URINE NEGATIVE (NEGATIVE); BENZODIAZEPINES SCREEN,URINE NEGATIVE (NEGATIVE); CANNABINOID SCREEN,URINE NEGATIVE (NEGATIVE); COCAINE SCREEN,URINE POSITIVE (NEGATIVE); OPIATE SCREEN,URINE NEGATIVE (NEGATIVE); PHENCYCLIDINE SCREEN,URINE NEGATIVE (NEGATIVE)
[2021-03-07 11:08] VITALS: BP 124/77
[2021-03-07 16:27] VITALS: BP 138/92
== END 2021-03-07 17:11 | disposition left against medical advice (07) ==
LOC: EDH 04:43 → EDHIP 04:44 → 3BH 10:48
PROVIDERS: ADMIT Hospitalist; ATTEND Hospitalist
DX: I11.0 Hypertensive heart disease with heart failure (principal); I50.23 Acute on chronic systolic (congestive) heart failure; I25.10 Atherosclerotic heart disease of native coronary artery without angina pectoris; I42.9 Cardiomyopathy, unspecified; I48.91 Unspecified atrial fibrillation; F41.9 Anxiety disorder, unspecified; F14.10 Cocaine abuse, uncomplicated; F32.9 Major depressive disorder, single episode, unspecified; F17.210 Nicotine dependence, cigarettes, uncomplicated; Z79.82 Long term (current) use of aspirin; Z95.810 Presence of automatic (implantable) cardiac defibrillator; Z79.899 Other long term (current) drug therapy
CPT/HCPCS: 36415; 71045; 80053; 80305; 82550; 83735; 83880; 84484 ×2; 85025; 85610; 85730; 93005 ×4; 94640; 94664; 96372; 96374; 99285; G0378 ×9; J1650; J1940

== ENCOUNTER → 2021-03-11 | Outpatient (CLI) | payer MEDICAID ==
[~2021-03-11] MED LIST changes: +OMEP20TA25 PO
== END | disposition home or self-care (01) ==
LOC: SHCH 08:45
PROVIDERS: ATTEND Internal Medicine Cardiovascular Disease
DX: I87.2 Venous insufficiency (chronic) (peripheral) (principal)
CPT/HCPCS: 93970

== ENCOUNTER 2021-05-03 23:17 | Observation (INO) | payer MEDICAID ==
[~2021-05-03] VITALS: Ht 167.6 cm; Wt 113.4 kg
[2021-05-04 00:15] LABS: APPEARANCE,URINE Clear (CLEAR); BILIRUBIN,URINE Negative (NEGATIVE); COLOR,URINE Yellow (YELLOW); GLUCOSE, URINE (UA) Negative (NEGATIVE); KETONES,URINE Negative (NEGATIVE); LEUKOCYTE ESTERASE ,URINE Negative (NEGATIVE); NITRATE,URINE Negative (NEGATIVE); OCCULT BLOOD,URINE Negative (NEGATIVE); PROTEIN,URINE POS 2+ mg/dL (NEGATIVE)
[2021-05-04 00:20] LABS: BACTERIA,URINE None Seen /HPF (None Seen); COARSE GRANULAR CASTS,URINE 0-2 /LPF (None Seen); RBC,URINE None Seen /HPF (0-1); SQUAMOUS EPITHELIAL CELL,UR Rare /HPF (0-2); WBC,URINE None Seen /HPF (0-1)
[2021-05-04 00:25] LABS: CARBON DIOXIDE 24 mmol/L (21-32); CHLORIDE 96 mmol/L (101-111); CREATININE 1.6 mg/dL (0.5-1.5); GLOMERULAR FILTR. RATE CALC 53 mL/min (>60); GLUCOSE,RANDOM 103 mg/dL (70-105); POTASSIUM 3.5 mmol/L (3.5-5.1); SODIUM SERUM 130 mmol/L (136-145); UREA NITROGEN, BLOOD 13 mg/dL (7-18)
[2021-05-04 00:29] LABS: ALANINE AMINOTRANSFERASE 43 U/L (12-78); ALBUMIN 3.3 g/dL (3.5-5.0); ASPARTATE AMINOTRANSFERASE 41 U/L (10-37); BILIRUBIN,TOTAL 1.6 mg/dL (0.2-1.0); CREATINE KINASE, TOTAL 120 U/L (21-232); TOTAL PROTEIN, SERUM 7.5 g/dL (6.0-8.3)
[2021-05-04 00:36] LABS: BASOPHILS % (AUTO) 0.2 % (0.0-5.0); HEMATOCRIT 37.6 % (42-54); LYMPHOCYTES % (AUTO) 13.6 % (21.0-51.0); MEAN CORPUSCULAR HEMOGLOBIN 24.6 pg (27.0-33.0); MEAN CORPUSCULAR HGB CONC 31.4 g/dL (32.0-36.0); MEAN CORPUSCULAR VOLUME 78.5 fL (79-99); MONOCYTES % (AUTO) 7.4 % (3.0-13.0); NEUTROPHILS % (AUTO) 78.5 % (40.0-77.0); PLATELET COUNT (AUTO) 298 K/uL (130-400); RED BLOOD CELL COUNT(AUTO) 4.79 MIL/uL (4.50-6.20); RED CELL DISTRIBUTION WIDTH 18.8 % (11.0-15.5); WHITE BLOOD COUNT (AUTO) 11.7 K/uL (4.8-10.8)
[2021-05-04 00:38] LABS: LIPASE < 50 U/L (114-286)
[2021-05-04 01:24] LABS: AMPHET/METH SCREEN,URINE NEGATIVE (NEGATIVE); BARBITURATE SCREEN, URINE NEGATIVE (NEGATIVE); BENZODIAZEPINES SCREEN,URINE POSITIVE (NEGATIVE); CANNABINOID SCREEN,URINE NEGATIVE (NEGATIVE); COCAINE SCREEN,URINE POSITIVE (NEGATIVE); OPIATE SCREEN,URINE NEGATIVE (NEGATIVE); PHENCYCLIDINE SCREEN,URINE NEGATIVE (NEGATIVE)
[2021-05-04] MEDS ORDERED: MORPHINE 4 MG SYG IV ONE (01:30)
[2021-05-04] MEDS ORDERED: FUROSEMIDE 40MG VIAL IV ONE (02:00)
[2021-05-04] MEDS ORDERED: MAGNESIUM 2GM PREMIX 50ML 50 ML IV PRN (04:00)
[2021-05-04] MEDS: NITROGLYCERIN 1GM OINT 1 INCH/1GM TD SCH ×3 (04:38→19:53)
[2021-05-04] MEDS: FUROSEMIDE 40MG VIAL IV SCH ×2 (04:46→17:16)
[2021-05-04] MEDS: MORPHINE 2 MG SYG IVP PRN ×3 (04:53→17:20)
[2021-05-04] MEDS ORDERED: ASPIRIN 81MG CHEW TAB PO ONE (05:00)
[2021-05-04] MEDS ORDERED: FAMOTIDINE 20MG TAB PO SCH (09:00)
[2021-05-04] MEDS ORDERED: ASPIRIN 81 MG EC TAB PO SCH (09:00)
[2021-05-04] MEDS ORDERED: ENOXAPARIN SODIUM 40 MG/0.4 ML SYRINGE SQ SCH (09:00)
[2021-05-04] MEDS: APIXABAN 5 MG TABLET PO SCH ×2 (10:38→19:53)
[2021-05-04] MEDS ORDERED: LIDOCAINE HCL-MPF 1% 2ML VIAL IV PRN (12:30)
[2021-05-04] MEDS ORDERED: POTASSIUM CHLORIDE 20MEQ/100ML 100 ML IV PRN (12:30)
[2021-05-04] MEDS ORDERED: POTASSIUM CHLORIDE 10% ELIXIR 20 MEQ/15 ML UDCUP PO PRN (12:30)
[2021-05-04] MEDS: KCL 20 MEQ ERTAB PO PRN ×2 (12:47→17:16)
[2021-05-04] MEDS ORDERED: KETOROLAC 15MG/ML VIAL (15MG/ML) ONE (21:13)
[2021-05-04 22:11] VITALS: BP 100/55
[2021-05-04] MEDS ORDERED: KETOROLAC 15MG/ML VIAL (15MG/ML) IM PRN (23:00)
== END 2021-05-04 23:22 | disposition left against medical advice (07) ==
LOC: EDH 23:17 → EDHIP 05-04 03:41 → 4AH 05-04 23:15
PROVIDERS: ADMIT Internal Medicine; ATTEND Internal Medicine
DX: R07.89 Other chest pain (principal); Z20.822 Contact with and (suspected) exposure to COVID-19; I11.0 Hypertensive heart disease with heart failure; I50.22 Chronic systolic (congestive) heart failure; R79.89 Other specified abnormal findings of blood chemistry; N17.9 Acute kidney failure, unspecified; E83.42 Hypomagnesemia; I42.9 Cardiomyopathy, unspecified; F14.10 Cocaine abuse, uncomplicated; F17.210 Nicotine dependence, cigarettes, uncomplicated; F41.9 Anxiety disorder, unspecified; Z79.82 Long term (current) use of aspirin; Z79.899 Other long term (current) drug therapy; Z95.810 Presence of automatic (implantable) cardiac defibrillator
CPT/HCPCS: 36415; 71046; 78582; 80053; 80305; 81001; 82550; 83690; 83735; 83880; 84484 ×4; 85025; 85378; 87635; 96365; 96366; 96375; 96376; 99284; A9540; A9558; G0378 ×19; J1885; J1940 ×2; J2270; J3475

== ENCOUNTER 2021-05-06 19:30 | Emergency (ER) | payer MEDICAID ==
[~2021-05-06] VITALS: Ht 167.6 cm; Wt 113.4 kg
[2021-05-06 20:03] LABS: BASOPHILS % (AUTO) 0.3 % (0.0-5.0); EOSINOPHILS % (AUTO) 0.3 % (0.0-8.0); HEMATOCRIT 41.4 % (42-54); LYMPHOCYTES % (AUTO) 13.2 % (21.0-51.0); MEAN CORPUSCULAR HEMOGLOBIN 24.4 pg (27.0-33.0); MEAN CORPUSCULAR HGB CONC 30.7 g/dL (32.0-36.0); MEAN CORPUSCULAR VOLUME 79.6 fL (79-99); MONOCYTES % (AUTO) 5.4 % (3.0-13.0); NEUTROPHILS % (AUTO) 80.4 % (40.0-77.0); PLATELET COUNT (AUTO) 450 K/uL (130-400); RED CELL DISTRIBUTION WIDTH 19.5 % (11.0-15.5); WHITE BLOOD COUNT (AUTO) 10.2 K/uL (4.8-10.8)
[2021-05-06 20:03] LABS: APPEARANCE,URINE Clear (CLEAR); BILIRUBIN,URINE Negative (NEGATIVE); COLOR,URINE Dark Yellow (YELLOW); GLUCOSE, URINE (UA) Negative (NEGATIVE); KETONES,URINE Trace mg/dL (NEGATIVE); LEUKOCYTE ESTERASE ,URINE Negative (NEGATIVE); NITRATE,URINE Negative (NEGATIVE); OCCULT BLOOD,URINE Negative (NEGATIVE); PROTEIN,URINE POS 1+ mg/dL (NEGATIVE)
[2021-05-06 20:13] LABS: CREATININE 1.4 mg/dL (0.5-1.5); POTASSIUM 4.7 mmol/L (3.5-5.1)
[2021-05-06 20:15] LABS: INR 1.27 (0.85-1.15); PROTHROMBIN TIME 13.5 SEC (9.6-11.6)
[2021-05-06 20:17] LABS: PARTIAL THROMBOPLASTIN TIME 28.5 SEC (26.3-35.5)
[2021-05-06 20:19] LABS: ALBUMIN 3.3 g/dL (3.5-5.0); TOTAL PROTEIN, SERUM 8.1 g/dL (6.0-8.3)
[2021-05-06 20:19] LABS: AMORPHOUS SEDIMENT,UR Few /LPF (None Seen); BACTERIA,URINE Few /HPF (None Seen); MUCUS,URINE Few LPF (None Seen); SQUAMOUS EPITHELIAL CELL,UR Moderate /HPF (0-2)
[2021-05-06 20:26] LABS: AMPHET/METH SCREEN,URINE NEGATIVE (NEGATIVE); BARBITURATE SCREEN, URINE NEGATIVE (NEGATIVE); BENZODIAZEPINES SCREEN,URINE POSITIVE (NEGATIVE); CANNABINOID SCREEN,URINE NEGATIVE (NEGATIVE); COCAINE SCREEN,URINE POSITIVE (NEGATIVE); OPIATE SCREEN,URINE NEGATIVE (NEGATIVE); PHENCYCLIDINE SCREEN,URINE NEGATIVE (NEGATIVE)
[2021-05-06 20:35] LABS: ALCOHOL, BLOOD 6 mg/dL (0-10); LIPASE < 50 U/L (114-286)
[2021-05-06] MEDS ORDERED: ONDANSETRON 4MG INJ IVP ONE (21:00)
[2021-05-06] MEDS ORDERED: DiphenhydrAMINE HCL 50 MG/ML VIAL IV ONE (21:00)
[2021-05-06] MEDS ORDERED: METOCLOPRAMIDE 10 MG/2 ML VIAL IVP ONE (21:00)
[2021-05-06] MEDS ORDERED: ASPIRIN 81MG CHEW TAB PO ONE (21:00)
[2021-05-06] MEDS ORDERED: FUROSEMIDE 40MG VIAL IV ONE (21:00)
[2021-05-06 21:35] VITALS: BP 108/52
[2021-05-06] MEDS ORDERED: ONDA4TAB10 PO (21:58)
[2021-05-06] MEDS ORDERED: METO-296 PO (21:58)
== END 2021-05-06 22:05 | disposition home or self-care (01) ==
LOC: EDH 19:30
DX: F14.10 Cocaine abuse, uncomplicated (principal); R07.89 Other chest pain; R11.0 Nausea; I11.0 Hypertensive heart disease with heart failure; I50.9 Heart failure, unspecified; F32.9 Major depressive disorder, single episode, unspecified; Z79.01 Long term (current) use of anticoagulants; Z79.82 Long term (current) use of aspirin; Z79.899 Other long term (current) drug therapy
CPT/HCPCS: 36415; 71045; 80053; 80305; 81001; 83690; 83880; 84484; 85025; 85610; 85730; 93005; 96374; 96375; 99285; J1200; J1940; J2405; J2765

== ENCOUNTER 2021-05-21 06:22 | Emergency (ER) | payer MEDICAID ==
[~2021-05-21] VITALS: Ht 167.6 cm; Wt 113.4 kg
[~2021-05-21 06:22] MED LIST changes: +METO-296 PO; +ONDA4TAB10 PO
[2021-05-21] MEDS ORDERED: LABETALOL 20MG SYG IV ONE (06:45)
[2021-05-21] MEDS ORDERED: NITROGLYCERIN 1GM OINT 1 INCH/1GM TD ONE (06:45)
[2021-05-21] MEDS ORDERED: ASPIRIN 325MG TAB ONE (06:45)
[2021-05-21 06:46] LABS: BASOPHILS % (AUTO) 0.2 % (0.0-5.0); HEMATOCRIT 43.8 % (42-54); LYMPHOCYTES % (AUTO) 13.1 % (21.0-51.0); MEAN CORPUSCULAR HEMOGLOBIN 23.8 pg (27.0-33.0); MEAN CORPUSCULAR HGB CONC 30.1 g/dL (32.0-36.0); MEAN CORPUSCULAR VOLUME 79.1 fL (79-99); NEUTROPHILS % (AUTO) 80.3 % (40.0-77.0); PLATELET COUNT (AUTO) 412 K/uL (130-400); RED BLOOD CELL COUNT(AUTO) 5.54 MIL/uL (4.50-6.20); RED CELL DISTRIBUTION WIDTH 19.5 % (11.0-15.5); WHITE BLOOD COUNT (AUTO) 12.1 K/uL (4.8-10.8)
[2021-05-21] MEDS ORDERED: 0.9%NACL 1000ML 1,000 ML IV ONE (06:46)
[2021-05-21 06:50] LABS: APPEARANCE,URINE Cloudy (CLEAR); BILIRUBIN,URINE Moderate (NEGATIVE); COLOR,URINE Dark Yellow (YELLOW); GLUCOSE, URINE (UA) Negative (NEGATIVE); KETONES,URINE 15 mg/dL (NEGATIVE); LEUKOCYTE ESTERASE ,URINE Trace (NEGATIVE); NITRATE,URINE Negative (NEGATIVE); OCCULT BLOOD,URINE Trace (NEGATIVE); PH,URINE 5.5 (5.0-8.0); PROTEIN,URINE 300 mg/dL (NEGATIVE)
[2021-05-21 06:54] LABS: INR 1.4 (0.85-1.15); PROTHROMBIN TIME 14.8 SEC (9.6-11.6)
[2021-05-21 06:58] LABS: AMPHET/METH SCREEN,URINE NEGATIVE (NEGATIVE); BARBITURATE SCREEN, URINE NEGATIVE (NEGATIVE); BENZODIAZEPINES SCREEN,URINE NEGATIVE (NEGATIVE); CANNABINOID SCREEN,URINE NEGATIVE (NEGATIVE); COCAINE SCREEN,URINE POSITIVE (NEGATIVE); OPIATE SCREEN,URINE NEGATIVE (NEGATIVE); PHENCYCLIDINE SCREEN,URINE NEGATIVE (NEGATIVE)
[2021-05-21 06:58] LABS: BILIRUBIN,TOTAL 2.4 mg/dL (0.2-1.0); CREATININE 1.6 mg/dL (0.5-1.5); TOTAL PROTEIN, SERUM 8.9 g/dL (6.0-8.3)
[2021-05-21] MEDS ORDERED: NITROGLYCERIN 1GM OINT 1 INCH/1GM TD SCH (07:00)
[2021-05-21] MEDS ORDERED: ASPIRIN 325MG TAB PO SCH (07:00)
[2021-05-21] MEDS ORDERED: LABETALOL 20MG VIAL IV SCH (07:00)
[2021-05-21 07:05] LABS: BACTERIA,URINE None Seen /HPF (None Seen); RBC,URINE 0-1 /HPF (0-1); WBC,URINE 0-1 /HPF (0-1)
[2021-05-21 07:06] LABS: CALCIUM OXALATE CRYSTALS,UR Few /LPF (None Seen); HYALINE CASTS, URINE 26-50 /LPF (0-1 /LPF); SQUAMOUS EPITHELIAL CELL,UR 0-2 /HPF (0-2)
[2021-05-21] MEDS ORDERED: 0.9%NACL 1000ML 1,000 ML IV SCH (07:11)
[2021-05-21 07:13] LABS: B-TYPE NATRIURETIC PEPTIDE 1900 pg/mL (0-100)
[2021-05-21] MEDS ORDERED: MORPHINE 2 MG SYG IVP SCH (07:30)
[2021-05-21] MEDS ORDERED: ONDANSETRON 4MG INJ IVP SCH (07:30)
[2021-05-21] MEDS ORDERED: FUROSEMIDE 40MG VIAL IV SCH (07:30)
[2021-05-21] MEDS ORDERED: MORPHINE 4 MG SYG ONE (07:42)
[2021-05-21] MEDS ORDERED: ACET1TAB25 PO (07:57)
[2021-05-21] MEDS ORDERED: KETOROLAC 15MG/ML VIAL (15MG/ML) IV SCH (09:00)
[2021-05-21 10:08] VITALS: BP 105/56
== END 2021-05-21 10:31 | disposition home or self-care (01) ==
LOC: EDH 06:22
DX: R07.89 Other chest pain (principal); F14.90 Cocaine use, unspecified, uncomplicated; F41.9 Anxiety disorder, unspecified; I11.0 Hypertensive heart disease with heart failure; I50.9 Heart failure, unspecified; F32.A Depression, unspecified; Z79.01 Long term (current) use of anticoagulants; Z79.1 Long term (current) use of non-steroidal anti-inflammatories (NSAID); Z79.82 Long term (current) use of aspirin; Z79.899 Other long term (current) drug therapy
CPT/HCPCS: 36415; 71045; 80053; 80305; 81001; 83880; 84484; 85025; 85610; 85730; 93005; 96361; 96374; 96375; 99285; J1885; J1940; J2270; J2405; J7030

== ENCOUNTER 2021-05-28 02:47 | Emergency (ER) | payer MEDICAID ==
[~2021-05-28] VITALS: Ht 167.6 cm; Wt 119.3 kg
[~2021-05-28 02:47] MED LIST changes: +ACET1TAB25 PO
[2021-05-28 04:39] LABS: BASOPHILS % (AUTO) 0.4 % (0.0-5.0); EOSINOPHILS % (AUTO) 0.3 % (0.0-8.0); HEMATOCRIT 39.3 % (42-54); LYMPHOCYTES % (AUTO) 19.6 % (21.0-51.0); MEAN CORPUSCULAR HEMOGLOBIN 23.9 pg (27.0-33.0); MEAN CORPUSCULAR HGB CONC 30.3 g/dL (32.0-36.0); MEAN CORPUSCULAR VOLUME 79.1 fL (79-99); MONOCYTES % (AUTO) 7.6 % (3.0-13.0); NEUTROPHILS % (AUTO) 71.7 % (40.0-77.0); PLATELET COUNT (AUTO) 322 K/uL (130-400); RED BLOOD CELL COUNT(AUTO) 4.97 MIL/uL (4.50-6.20); RED CELL DISTRIBUTION WIDTH 18.6 % (11.0-15.5); WHITE BLOOD COUNT (AUTO) 7.9 K/uL (4.8-10.8)
[2021-05-28 04:44] LABS: CREATININE 1.2 mg/dL (0.5-1.5)
[2021-05-28 04:49] LABS: ALBUMIN 3.4 g/dL (3.5-5.0); BILIRUBIN,TOTAL 1.1 mg/dL (0.2-1.0); TOTAL PROTEIN, SERUM 7.8 g/dL (6.0-8.3)
[2021-05-28 07:08] VITALS: BP 124/78
== END 2021-05-28 07:09 | disposition home or self-care (01) ==
LOC: EDH 02:47
DX: F14.288 Cocaine dependence with other cocaine-induced disorder (principal); I42.7 Cardiomyopathy due to drug and external agent; I10 Essential (primary) hypertension; F41.9 Anxiety disorder, unspecified; E66.01 Morbid (severe) obesity due to excess calories; I25.2 Old myocardial infarction; Z76.5 Malingerer [conscious simulation]; F17.200 Nicotine dependence, unspecified, uncomplicated; Z79.01 Long term (current) use of anticoagulants; Z79.82 Long term (current) use of aspirin; Z79.899 Other long term (current) drug therapy
CPT/HCPCS: 36415; 71045; 80053; 84484; 85025; 93005

== ENCOUNTER 2021-06-16 04:28 | Emergency (ER) | payer MEDICAID ==
[~2021-06-16] VITALS: Ht 167.6 cm; Wt 113.4 kg
[2021-06-16 05:05] LABS: BASOPHILS % (AUTO) 0.2 % (0.0-5.0); HEMATOCRIT 35.5 % (42-54); MEAN CORPUSCULAR HEMOGLOBIN 23.6 pg (27.0-33.0); MEAN CORPUSCULAR HGB CONC 31.3 g/dL (32.0-36.0); MEAN CORPUSCULAR VOLUME 75.5 fL (79-99); NEUTROPHILS % (AUTO) 77.5 % (40.0-77.0); PLATELET COUNT (AUTO) 422 K/uL (130-400); RED CELL DISTRIBUTION WIDTH 19.1 % (11.0-15.5); WHITE BLOOD COUNT (AUTO) 8.9 K/uL (4.8-10.8)
[2021-06-16 05:16] LABS: CREATININE 1.7 mg/dL (0.5-1.5); POTASSIUM 4.4 mmol/L (3.5-5.1)
[2021-06-16 05:21] LABS: ALBUMIN 3.2 g/dL (3.5-5.0); BILIRUBIN,TOTAL 2.3 mg/dL (0.2-1.0)
[2021-06-16] MEDS ORDERED: MORPHINE 2 MG SYG IVP SCH (06:30)
[2021-06-16] MEDS ORDERED: ASPIRIN 325MG EC TAB PO SCH (06:30)
[2021-06-16] MEDS ORDERED: ONDANSETRON 4MG INJ IVP SCH (06:30)
[2021-06-16] MEDS ORDERED: ONDANSETRON 4MG INJ ONE (06:35)
[2021-06-16] MEDS ORDERED: MORPHINE 2 MG SYG ONE (06:35)
[2021-06-16] MEDS ORDERED: ASPIRIN 325MG EC TAB PO ONE (06:35)
[2021-06-16] MEDS ORDERED: ACET1TAB25 PO (07:33)
[2021-06-16 07:59] VITALS: BP 104/58
[2021-06-16] MEDS ORDERED: ACETAMINOPHEN 500 MG TABLET PO SCH (08:00)
== END 2021-06-16 08:00 | disposition home or self-care (01) ==
LOC: EDH 04:28
DX: R07.89 Other chest pain (principal); I11.0 Hypertensive heart disease with heart failure; I50.9 Heart failure, unspecified; F32.A Depression, unspecified; F41.9 Anxiety disorder, unspecified; F19.10 Other psychoactive substance abuse, uncomplicated; F17.200 Nicotine dependence, unspecified, uncomplicated; Z79.01 Long term (current) use of anticoagulants; Z79.82 Long term (current) use of aspirin; Z79.899 Other long term (current) drug therapy
CPT/HCPCS: 36415; 71045; 80053; 83880; 84484; 85025; 93005; 96374; 96375; 99285; J2405

== ENCOUNTER → 2021-07-04 | Outpatient (CLI) | payer MEDICAID | END | disposition home or self-care (01) | LOC: SLP 20:19 | PROVIDERS: ATTEND Internal Medicine Cardiovascular Disease | DX: G47.33 Obstructive sleep apnea (adult) (pediatric) (principal) | CPT/HCPCS: 95810 ==

== ENCOUNTER 2021-07-17 07:43 | Emergency (ER) | payer MEDICAID ==
[~2021-07-17] VITALS: Ht 167.6 cm; Wt 113.4 kg
[2021-07-17] MEDS ORDERED: PENI500T2 PO (08:06)
[2021-07-17] MEDS ORDERED: ACET1TAB25 PO (08:06)
[2021-07-17 08:16] VITALS: BP 126/81
[2021-07-17] MEDS ORDERED: KETOROLAC 60 MG VIAL (30MG/ML) IM SCH (08:30)
== END 2021-07-17 08:20 | disposition home or self-care (01) ==
LOC: EDH 07:43
DX: K05.10 Chronic gingivitis, plaque induced (principal); K08.89 Other specified disorders of teeth and supporting structures; F32.A Depression, unspecified; F41.9 Anxiety disorder, unspecified; I11.0 Hypertensive heart disease with heart failure; I50.9 Heart failure, unspecified; F17.200 Nicotine dependence, unspecified, uncomplicated; Z79.01 Long term (current) use of anticoagulants; Z79.82 Long term (current) use of aspirin; Z79.899 Other long term (current) drug therapy
CPT/HCPCS: 96372; 99283; J1885

== ENCOUNTER → 2021-08-28 | Outpatient (CLI) | payer MEDICAID ==
[~2021-08-28] MED LIST changes: +PENI500T2 PO
== END | disposition home or self-care (01) ==
LOC: SLP 20:18
PROVIDERS: ATTEND Internal Medicine Cardiovascular Disease
DX: G47.33 Obstructive sleep apnea (adult) (pediatric) (principal)
CPT/HCPCS: 95811

== ENCOUNTER 2021-10-25 19:57 | Emergency (ER) | payer MEDICAID ==
[~2021-10-25 19:57] MED LIST changes: +ACET-2079 PO; -ACET1TAB25 PO; +OMEP20TA20 PO; -OMEP20TA25 PO
== END 2021-10-25 20:53 | disposition left against medical advice (07) ==
LOC: EDH 19:57
DX: R06.02 Shortness of breath (principal); R50.9 Fever, unspecified; Z53.21 Procedure and treatment not carried out due to patient leaving prior to being seen by health care provider

== ENCOUNTER → 2022-05-11 | Outpatient (CLI) | payer MEDICAID ==
[2022-05-11 12:41] LABS: CREATININE 1.1 mg/dL (0.5-1.5); MAGNESIUM 1.9 mg/dL (1.80-2.40); POTASSIUM 4.3 mmol/L (3.5-5.1)
== END | disposition home or self-care (01) ==
LOC: LAB 11:10
PROVIDERS: ATTEND Physician Assistant
DX: I50.22 Chronic systolic (congestive) heart failure (principal); I42.0 Dilated cardiomyopathy
CPT/HCPCS: 36415; 80048; 83735; 83880

== ENCOUNTER → 2022-07-06 | Outpatient (CLI) | payer MEDICAID ==
[2022-07-06 12:45] LABS: CREATININE 1.1 mg/dL (0.5-1.5); MAGNESIUM 1.8 mg/dL (1.80-2.40); POTASSIUM 3.9 mmol/L (3.5-5.1)
== END | disposition home or self-care (01) ==
LOC: LAB 09:02
PROVIDERS: ATTEND Physician Assistant
DX: I50.22 Chronic systolic (congestive) heart failure (principal); I42.0 Dilated cardiomyopathy
CPT/HCPCS: 36415; 80048; 83735; 83880

== ENCOUNTER → 2023-10-07 | Outpatient (CLI) | payer OTHER, MEDICARE ==
[~2023-10-07] MED LIST changes: +BENZ-39 PO; +CARV-158 PO; -CARV3.1262 PO; +KETO10 PO
== END | disposition home or self-care (01) ==
LOC: SHCH 10:30
PROVIDERS: ATTEND Internal Medicine Cardiovascular Disease
DX: I08.1 Rheumatic disorders of both mitral and tricuspid valves (principal); I42.0 Dilated cardiomyopathy; I27.20 Pulmonary hypertension, unspecified
CPT/HCPCS: 93306

== ENCOUNTER → 2024-01-01 | Outpatient (CLI) | payer OTHER, MEDICARE ==
[~2024-01-01] MED LIST changes: -CARV-158 PO; +CARV3.1262 PO; +ONDA-243 PO; -ONDA4TAB10 PO
[2024-01-01 16:41] LABS: ALBUMIN 3.5 g/dL (3.5-5.0); BILIRUBIN,TOTAL 1.2 mg/dL (0.2-1.0); CREATININE 1.3 mg/dL (0.5-1.3); MAGNESIUM 1.9 mg/dL (1.80-2.40); POTASSIUM 3.6 mmol/L (3.5-5.1); TOTAL PROTEIN, SERUM 7.7 g/dL (6.0-8.3)
== END | disposition home or self-care (01) ==
LOC: LAB 15:27
PROVIDERS: ATTEND Internal Medicine Cardiovascular Disease
DX: I73.9 Peripheral vascular disease, unspecified (principal); I42.0 Dilated cardiomyopathy
CPT/HCPCS: 36415; 80053; 83735; 83880

== ENCOUNTER 2024-01-12 17:11 | Emergency (ER) | payer OTHER, MEDICARE ==
[~2024-01-12] VITALS: Ht 167.6 cm; Wt 95.3 kg
[2024-01-12 17:31] LABS: BASOPHILS # (AUTO) 0.04 K/uL (0.00-0.20); BASOPHILS % (AUTO) 0.6 % (0.0-5.0); EOSINOPHILS # (AUTO) 0.05 K/uL (0.00-0.70); EOSINOPHILS % (AUTO) 0.7 % (0.0-8.0); HEMATOCRIT 47.1 % (42-54); IMMATURE GRANULOCYTE ABSOLUTE 0.02 K/uL (0-1); LYMPHOCYTES # (AUTO) 1.5 K/uL (1.0-4.8); LYMPHOCYTES % (AUTO) 21.8 % (21.0-51.0); MEAN CORPUSCULAR HEMOGLOBIN 27.2 pg (27.0-33.0); MEAN CORPUSCULAR HGB CONC 31.8 g/dL (32.0-36.0); MEAN CORPUSCULAR VOLUME 85.5 fL (79-99); MONOCYTES # (AUTO) 0.4 K/uL (0.1-1.0); MONOCYTES % (AUTO) 6.3 % (3.0-13.0); NEUTROPHILS # (AUTO) 4.7 K/uL (1.8-7.7); NEUTROPHILS % (AUTO) 70.3 % (40.0-77.0); PLATELET COUNT (AUTO) 220 K/uL (130-400); RED BLOOD CELL COUNT(AUTO) 5.51 MIL/uL (4.50-6.20); RED CELL DISTRIBUTION WIDTH 19.6 % (11.0-15.5); WHITE BLOOD COUNT (AUTO) 6.7 K/uL (4.8-10.8)
[2024-01-12 17:44] LABS: CREATININE 1.4 mg/dL (0.5-1.3); INR 1.09 (0.85-1.15); PROTHROMBIN TIME 12.8 SEC (9.6-11.6)
[2024-01-12 17:45] LABS: PARTIAL THROMBOPLASTIN TIME 27.4 SEC (26.3-35.5)
[2024-01-12] MEDS: NITROGLYCERIN 0.4 MG SL TAB SL PRN (17:47)
[2024-01-12] MEDS: LORAZEPAM 2 MG/ML 1 ML VIAL IVP ONE (17:47)
[2024-01-12] MEDS: MORPHINE 2 MG SYG IVP ONE ×2 (17:48→19:43)
[2024-01-12] MEDS: ASPIRIN 325MG TAB PO ONE (18:01)
[2024-01-12] MEDS: ATORVASTATIN 40 MG TABLET PO ONE (18:01)
[2024-01-12 18:17] LABS: POTASSIUM 2.9 mmol/L (3.5-5.1)
[2024-01-12] MEDS: POTASSIUM BICARB/CIT AC 25 MEQ TABLET.EFF PO ONE (18:30)
[2024-01-12] MEDS: ACETAMINOPHEN 500 MG TABLET PO ONE (18:40)
[2024-01-12 19:49] LABS: AMPHET/METH SCREEN,URINE NEGATIVE (NEGATIVE); APPEARANCE,URINE CLEAR (CLEAR); BARBITURATE SCREEN, URINE NEGATIVE (NEGATIVE); BENZODIAZEPINES SCREEN,URINE NEGATIVE (NEGATIVE); BILIRUBIN,URINE NEGATIVE (NEGATIVE); CANNABINOID SCREEN,URINE NEGATIVE (NEGATIVE); COCAINE SCREEN,URINE POSITIVE (NEGATIVE); COLOR,URINE YELLOW (YELLOW); GLUCOSE, URINE (UA) NEGATIVE (NEGATIVE); KETONES,URINE NEGATIVE (NEGATIVE); LEUKOCYTE ESTERASE ,URINE NEGATIVE Leu/uL (NEGATIVE); NITRATE,URINE NEGATIVE (NEGATIVE); OCCULT BLOOD,URINE NEGATIVE (NEGATIVE); OPIATE SCREEN,URINE POSITIVE (NEGATIVE); PHENCYCLIDINE SCREEN,URINE NEGATIVE (NEGATIVE); PROTEIN,URINE 100 mg/dL (NEGATIVE); UROBILINOGEN,URINE 3 mg/dL (0.2-1.0)
[2024-01-12 19:59] LABS: ADD UA MICROSCOPIC YES
[2024-01-12 20:00] LABS: MUCUS,URINE RARE LPF (None Seen); RBC,URINE 0-1 /HPF (0-1); SQUAMOUS EPITHELIAL CELL,UR RARE /HPF (0-2)
[2024-01-12] MEDS ORDERED: DIPH-1242 PO (20:44)
[2024-01-12] MEDS ORDERED: HYDR-3830 PO (20:44)
[2024-01-12 20:54] VITALS: BP 114/80; PULSE 99; RESP 24
== END 2024-01-12 20:57 | disposition home or self-care (01) ==
LOC: EDH 17:11
DX: R07.9 Chest pain, unspecified (principal); F14.10 Cocaine abuse, uncomplicated; I11.0 Hypertensive heart disease with heart failure; I50.9 Heart failure, unspecified; I48.91 Unspecified atrial fibrillation; Z79.899 Other long term (current) drug therapy
CPT/HCPCS: 99285; 96374; 71045; 96375; 82550; 84484 ×3; 80048; 80305; 85025; 85610; 85730; 36415; 96376; 93005 ×3; 81001; J2270 ×2; J2060

== ENCOUNTER 2024-03-03 22:39 | Emergency (ER) | payer OTHER, MEDICARE ==
[~2024-03-03] VITALS: Ht 167.6 cm; Wt 93.0 kg
[~2024-03-03 22:39] MED LIST changes: +DIPH-1242 PO; +HYDR-3830 PO
[2024-03-03 23:09] LABS: BASOPHILS # (AUTO) 0.02 K/uL (0.00-0.20); BASOPHILS % (AUTO) 0.3 % (0.0-5.0); EOSINOPHILS # (AUTO) 0.09 K/uL (0.00-0.70); EOSINOPHILS % (AUTO) 1.1 % (0.0-8.0); HEMATOCRIT 40.4 % (42-54); IMMATURE GRANULOCYTE ABSOLUTE 0.01 K/uL (0-1); LYMPHOCYTES # (AUTO) 0.9 K/uL (1.0-4.8); LYMPHOCYTES % (AUTO) 11.9 % (21.0-51.0); MEAN CORPUSCULAR HEMOGLOBIN 27.1 pg (27.0-33.0); MEAN CORPUSCULAR HGB CONC 32.2 g/dL (32.0-36.0); MEAN CORPUSCULAR VOLUME 84.3 fL (79-99); MONOCYTES # (AUTO) 0.5 K/uL (0.1-1.0); MONOCYTES % (AUTO) 6.4 % (3.0-13.0); NEUTROPHILS # (AUTO) 6.3 K/uL (1.8-7.7); NEUTROPHILS % (AUTO) 80.2 % (40.0-77.0); PLATELET COUNT (AUTO) 244 K/uL (130-400); RED BLOOD CELL COUNT(AUTO) 4.79 MIL/uL (4.50-6.20); RED CELL DISTRIBUTION WIDTH 18.8 % (11.0-15.5); WHITE BLOOD COUNT (AUTO) 7.9 K/uL (4.8-10.8)
[2024-03-03 23:14] LABS: CREATININE 1.7 mg/dL (0.5-1.3); POTASSIUM 3.2 mmol/L (3.5-5.1)
[2024-03-03] MEDS: 0.9%NACL 1000ML 1,000 ML IV STA (23:27)
[2024-03-03] MEDS: MORPHINE 4 MG SYG IVP STA (23:28)
[2024-03-03 23:29] LABS: B-TYPE NATRIURETIC PEPTIDE 1970 pg/mL (0-100)
[2024-03-03 23:36] VITALS: BP 144/92; PULSE 71; RESP 28; O2SAT 98
[2024-03-04] MEDS: LORazepam 2 MG/ML 1 ML VIAL IVP STA (02:18)
[2024-03-04] MEDS: FUROSEMIDE 40MG VIAL IV STA (02:18)
[2024-03-04] MEDS: POTASSIUM BICARB/CIT AC 25 MEQ TABLET.EFF PO STA (02:18)
== END 2024-03-04 04:19 | disposition left against medical advice (07) ==
LOC: EDH 22:39
DX: I11.0 Hypertensive heart disease with heart failure (principal); I50.9 Heart failure, unspecified; F14.10 Cocaine abuse, uncomplicated; E11.9 Type 2 diabetes mellitus without complications; E78.00 Pure hypercholesterolemia, unspecified; F17.200 Nicotine dependence, unspecified, uncomplicated; F41.9 Anxiety disorder, unspecified; I48.91 Unspecified atrial fibrillation; Z79.82 Long term (current) use of aspirin; Z79.899 Other long term (current) drug therapy; Z86.73 Personal history of transient ischemic attack (TIA), and cerebral infarction without residual deficits; Z95.810 Presence of automatic (implantable) cardiac defibrillator
CPT/HCPCS: 99285; 96374; 70450; 71045; 96361; 82550; 83735; 84484 ×2; 80048; 83880; 85025; 82948; 36415; 96375; J7030; J2270; J2060; J1940

== ENCOUNTER 2024-04-15 04:05 | Observation (INO) | payer OTHER, MEDICARE ==
[~2024-04-15] VITALS: Ht 167.6 cm; Wt 93.0 kg
[2024-04-15 04:33] VITALS: TEMP 97.7
[2024-04-15 04:39] LABS: APPEARANCE,URINE CLEAR (CLEAR); BILIRUBIN,URINE NEGATIVE (NEGATIVE); COLOR,URINE LIGHT-YELLOW (YELLOW); GLUCOSE, URINE (UA) NEGATIVE (NEGATIVE); KETONES,URINE NEGATIVE (NEGATIVE); LEUKOCYTE ESTERASE ,URINE NEGATIVE Leu/uL (NEGATIVE); NITRATE,URINE NEGATIVE (NEGATIVE); OCCULT BLOOD,URINE NEGATIVE (NEGATIVE); PH,URINE 6.5 (5.0-8.0); PROTEIN,URINE NEGATIVE (NEGATIVE); UROBILINOGEN,URINE 0.2 mg/dL (0.2-1.0)
[2024-04-15 04:46] LABS: AMPHET/METH SCREEN,URINE NEGATIVE (NEGATIVE); BARBITURATE SCREEN, URINE NEGATIVE (NEGATIVE); BENZODIAZEPINES SCREEN,URINE NEGATIVE (NEGATIVE); CANNABINOID SCREEN,URINE NEGATIVE (NEGATIVE); COCAINE SCREEN,URINE POSITIVE (NEGATIVE); OPIATE SCREEN,URINE NEGATIVE (NEGATIVE); PHENCYCLIDINE SCREEN,URINE NEGATIVE (NEGATIVE)
[2024-04-15] MEDS: diazePAM 5 MG/ML 2 ML SYG IVP ONE (04:53)
[2024-04-15] MEDS: PANTOPRAZOLE 40 MG/VIAL IVP ONE (04:53)
[2024-04-15 04:54] LABS: BASOPHILS # (AUTO) 0.01 K/uL (0.00-0.20); BASOPHILS % (AUTO) 0.2 % (0.0-5.0); EOSINOPHILS # (AUTO) 0.02 K/uL (0.00-0.70); EOSINOPHILS % (AUTO) 0.4 % (0.0-8.0); IMMATURE GRANULOCYTE ABSOLUTE 0.02 K/uL (0-1); LYMPHOCYTES # (AUTO) 0.6 K/uL (1.0-4.8); LYMPHOCYTES % (AUTO) 11.2 % (21.0-51.0); MEAN CORPUSCULAR HEMOGLOBIN 27.5 pg (27.0-33.0); MEAN CORPUSCULAR HGB CONC 33.2 g/dL (32.0-36.0); MEAN CORPUSCULAR VOLUME 82.6 fL (79-99); MONOCYTES # (AUTO) 0.4 K/uL (0.1-1.0); MONOCYTES % (AUTO) 8.8 % (3.0-13.0); NEUTROPHILS # (AUTO) 3.9 K/uL (1.8-7.7); PLATELET COUNT (AUTO) 156 K/uL (130-400); RED BLOOD CELL COUNT(AUTO) 4.48 MIL/uL (4.50-6.20)
[2024-04-15 05:01] LABS: CREATININE 1.9 mg/dL (0.5-1.3); POTASSIUM 3.3 mmol/L (3.5-5.1)
[2024-04-15 05:04] LABS: ADD UA MICROSCOPIC NO
[2024-04-15 05:06] LABS: INR 1.38 (0.85-1.15); PROTHROMBIN TIME 14.6 SEC (9.6-11.6)
[2024-04-15 05:07] LABS: PARTIAL THROMBOPLASTIN TIME 27.4 SEC (26.3-35.5)
[2024-04-15] MEDS: LIDOCAINE HCL 2% VISCOUS 15 ML UDCUP PO ONE (05:37)
[2024-04-15] MEDS: 0.9%NACL 1000ML 1,000 ML IV ONE (05:37)
[2024-04-15] MEDS: MAG/ALUM/SIMETH 30 ML UDCUP PO ONE (05:37)
[2024-04-15 06:01] LABS: B-TYPE NATRIURETIC PEPTIDE 1400 pg/mL (0-100)
[2024-04-15] MEDS: HYDROcodone/APAP 5/325 1 TAB TABLET PO ONE (06:23)
[2024-04-15] MEDS: ASPIRIN 325MG TAB PO ONE (06:47)
[2024-04-15] MEDS ORDERED: NITROGLYCERIN 0.4 MG SL TAB SL PRN (07:00)
[2024-04-15 07:08] LABS: CHOLESTEROL 97 mg/dL (<200); HDL CHOLESTEROL 48 mg/dL (29-71); LDL DIRECT 45 mg/dL (0-99); TRIGLYCERIDES 44 mg/dL (30-200)
[2024-04-15] MEDS: furoSEMIDE 20MG VIAL IV SCH (07:50)
[2024-04-15] MEDS: HEParin 5,000 UNIT VIAL SQ SCH (07:51)
[2024-04-15] MEDS: ASPIRIN 81MG CHEW TAB PO SCH (07:51)
[2024-04-15] MEDS: furoSEMIDE 40MG VIAL IV ONE (07:52)
[2024-04-15] MEDS ORDERED: MAGNESIUM 2GM PREMIX 50ML 50 ML IV PRN (11:00)
[2024-04-15] MEDS ORDERED: POTASSIUM CHLORIDE 10% ELIXIR 20 MEQ/15 ML UDCUP PO PRN (11:00)
[2024-04-15] MEDS ORDERED: POTASSIUM CHLORIDE 10MEQ/100ML 100 ML IV PRN (11:00)
[2024-04-15] MEDS ORDERED: POTASSIUM CHLORIDE 10MEQ SR TAB PO PRN (11:00)
[2024-04-15 12:00] VITALS: BP 105/69; PULSE 84; RESP 20; O2SAT 98
[2024-04-15] MEDS ORDERED: atorVAStatin 40 MG TABLET PO SCH (21:00)
== END 2024-04-15 13:34 | disposition left against medical advice (07) ==
LOC: EDH 04:05 → EDHIP 06:39
PROVIDERS: ADMIT Hospitalist; ATTEND Hospitalist
DX: J96.00 Acute respiratory failure, unspecified whether with hypoxia or hypercapnia (principal); I25.5 Ischemic cardiomyopathy; I13.0 Hypertensive heart and chronic kidney disease with heart failure and stage 1 through stage 4 chronic kidney disease, or unspecified chronic kidney disease; E11.22 Type 2 diabetes mellitus with diabetic chronic kidney disease; N18.2 Chronic kidney disease, stage 2 (mild); I50.43 Acute on chronic combined systolic (congestive) and diastolic (congestive) heart failure; N17.9 Acute kidney failure, unspecified; E87.1 Hypo-osmolality and hyponatremia; E87.6 Hypokalemia; I48.91 Unspecified atrial fibrillation; F41.9 Anxiety disorder, unspecified; E78.00 Pure hypercholesterolemia, unspecified; E11.9 Type 2 diabetes mellitus without complications; F32.A Depression, unspecified; F14.10 Cocaine abuse, uncomplicated; I25.2 Old myocardial infarction; F17.210 Nicotine dependence, cigarettes, uncomplicated; Z95.810 Presence of automatic (implantable) cardiac defibrillator; Z86.73 Personal history of transient ischemic attack (TIA), and cerebral infarction without residual deficits; Z79.899 Other long term (current) drug therapy; Z88.0 Allergy status to penicillin
CPT/HCPCS: 96374; 96372; 96375; 81003; 99285; 83036; 82550; 83735; 84484 ×3; 80061; 80048; 83880; 80305; 85025; 85610; 85730; 87040; 36415; 71045; 93306; 93005; G0378 ×6; J7030; J3360; J1940; J1644; J2470